=== PATIENT | female | born 1965 | race Caucasian/White ===

== ENCOUNTER 2018-11-25 18:18 | Inpatient (IN) ==
--- NOTE | 2018-11-25 19:31 | XR ---
EXAM DATE: 11/25/2018 7:27 PM EST AGE/SEX: 53 years / Female INDICATIONS: Fever. Possible seizure. CLINICAL DATA: This is the patient's initial encounter. Patient reports that signs and symptoms have been present for 1 day and indicates a pain score of Nonresponsive. MEDICAL/SURGICAL HISTORY: . Unobtainable. . Unobtainable. COMPARISON: . FINDINGS: The lungs are clear without infiltrate, nodule, or mass. There is no appreciable pleural e ffusion for technique. Heart and mediastinum are unremarkable. Transpedicular screws and posterior s tabilization rods are present involving the patient's thoracic spine. CONCLUSION: No acute cardiopulmonary disease. Electronically signed by: Chalo Rodriguez MD Board Certified Radiologist 11/25/2018 7:29 PM EST
[2018-11-25] MEDS ORDERED: Morphine Inj 4 MG/ML Vial IV.PUSH ONE (20:36)
[2018-11-25 20:48] LABS: Baso % (Auto) 0.3 % (0.0-2.0); Eos # (Auto) 0.2 th/mm3 (0.0-0.4); Eos % (Auto) 1.6 % (0.0-4.0); Lymph # (Auto) 2.6 th/mm3 (1.0-4.8); Lymph % (Auto) 19.8 % (9.0-44.0); Mean Corpuscular HGB Conc 33.4 % (32.0-36.0); Mean Corpuscular Hemoglobin 29.2 pg (27.0-34.0); Mean Corpuscular Volume 87.5 fL (80.0-100.0); Mean Platelet Volume 7.9 fL (7.0-11.0); Mono # (Auto) 0.6 th/mm3 (0.0-0.9); Mono % (Auto) 4.8 % (0.0-8.0); Neut # (Auto) 9.5 th/mm3 (1.8-7.7); Neut % (Auto) 73.5 % (16.0-70.0); Platelet Count 376 th/mm3 (150-450); Red Blood Count 5.49 mil/mm3 (4.00-5.30); Red Cell Distribution Width 14.6 % (11.6-17.2); White Blood Count 12.9 th/mm3 (4.0-11.0)
[2018-11-25 21:17] LABS: Alanine Aminotransferase 30 U/L (10-53); Albumin 3.9 g/dL (3.4-5.0); Alkaline Phosphatase 130 U/L (45-117); Anion Gap 8 meq/L (5-15); Aspartate Aminotransferase 18 U/L (15-37); Blood Urea Nitrogen 21 mg/dL (7-18); Calcium 9.2 mg/dL (8.5-10.1); Carbon Dioxide 23.2 meq/L (21.0-32.0); Chloride 109 meq/L (98-107); Glomerular Filtration Rate 54 mL/min (>89); Magnesium 2.1 mg/dL (1.5-2.5); Potassium 3.2 meq/L (3.5-5.1); Sodium 140 meq/L (136-145); Total Protein 8.6 g/dL (6.4-8.2)
[2018-11-25 21:35] LABS: Glucose,Random 43 mg/dL (74-106)
[2018-11-25] MEDS ORDERED: Sod Chloride 0.9% Inj 1,000 ML IV.SIG SCH (21:45)
[2018-11-25 22:10] LABS: Eosinophils 3 % (0-4); Lymphocytes 16 % (9-44); Monocytes 7 % (0-8); Platelet Estimate Normal (Normal); Platelet Morphology Normal (Normal)
--- NOTE | 2018-11-25 22:39 | CT ---
EXAM DATE: 11/25/2018 10:19 PM EST AGE/SEX: 53 years / Female INDICATIONS: Altered mental status. Seizure. CLINICAL DATA: This is the patient's initial encounter. Patient reports that signs and symptoms have been present for 1 day and indicates a pain score of 0/10. MEDICAL/SURGICAL HISTORY: Seizures. . Heart valve replacement. RADIATION DOSE: 34.87 CTDI (mGy) COMPARISON: No prior exams available for comparison. TECHNIQUE: CT of the head without contrast. Using automated exposure control and adjustment of the mA and/or kV according to patient size, radiation dose was kept as low as reasonably achievable to ob tain optimal diagnostic quality images. DICOM format image data is available electronically for revi ew and comparison. FINDINGS: Cerebrum: The ventricles are normal for age. No evidence of midline shift, mass lesion, hemorrhage or acute infarction. No extraaxial fluid collections are seen. There is low density in the anterior left basal ganglia and the anterior limb of the internal capsule on the right likely from prior lacun ar infarct. Posterior Fossa: The cerebellum and brainstem are intact. The 4th ventricle is midline. The cerebe llopontine angle is unremarkable. Extracranial: The visualized portion of the orbits is intact. Skull: The calvaria is intact. No evidence of skull fracture. CONCLUSION: 1. No acute areas of hemorrhage or mass effect. 2. Suspected old lacunar infarcts. . . Electronically signed by: Madhu Blevins MD Board Certified Radiologist 11/25/2018 10:38 PM EST
--- NOTE | 2018-11-25 22:59 | ED ---
HPI General Chief complaint: Seizure Stated complaint: Seizure Time Seen by Provider: 11/25/18 18:59 Source: EMS Mode of arrival: EMS Limitations: altered mental status History of Present Illness HPI narrative: 53-year-old female came to the emergency room with history of seizure that was witnessed by the family. Her blood sugar when checked was in the 40s at the bedside. It was low when EMS had arrived and given her some D50 but continued to be low. She was given another amp of D50 prior to my arrival. She was a difficult IV and hence an IO was obtained by Dr. Valverde. When I went to see her patient was altered mental status but awake enough to be complaining of the right leg pain where the IO was inserted. The needle was taken out. It was difficult to get much history other than that from the patient. She was constantly moaning and complaining about the leg pain. There was no family member in the room to give any additional history. Patient is not a reliable historian at this point. Related Data Home Medications Medication Instructions Recorded Confirmed alprazolam [Xanax] 1 mg PO BID PRN 11/25/18 11/25/18 aspirin 81 mg PO DAILY 11/25/18 11/25/18 cyclobenzaprine 10 mg PO BID PRN 11/25/18 11/25/18 pantoprazole [Protonix] 40 mg PO DAILY 11/25/18 11/25/18 Previous Rx's Medication Instructions Recorded diltiazem HCl 120 mg PO DAILY 30 Days #30 cap 11/29/18 hydromorphone 2 mg PO Q4H PRN #15 tab 11/29/18 pravastatin 40 mg PO DAILY 30 Days #30 tab 11/29/18 Allergies Allergy/AdvReac Type Severity Reaction Status Date / Time acetaminophen [From Fioricet] Allergy Shortness Verified 11/25/18 18:57 of Breath butalbital [From Fioricet] Allergy Shortness Verified 11/25/18 18:57 of Breath butorphanol Allergy Shortness Verified 11/25/18 18:57 of Breath caffeine [From Fioricet] Allergy Shortness Verified 11/25/18 18:57 of Breath calcium [From DHEA] Allergy Shortness Verified 11/25/18 18:57 of Breath calcium carbonate [From DHEA] Allergy Shortness Verified 11/25/18 18:57 of Breath doxycycline Allergy Shortness Verified 11/25/18 18:57 of Breath droperidol [From Inapsine] Allergy Shortness Verified 11/25/18 18:57 of Breath hydrocodone Allergy Shortness Verified 11/25/18 18:57 [From Lorcet (hydrocodone)] of Breath ketorolac [From Toradol] Allergy Shortness Verified 11/25/18 18:57 of Breath lorazepam [From Ativan] Allergy Shortness Verified 11/25/18 18:57 of Breath metoclopramide [From Reglan] Allergy Shortness Verified 11/25/18 18:57 of Breath nalbuphine [From Nubain] Allergy Shortness Verified 11/25/18 18:57 of Breath oxycodone [From Percocet] Allergy Shortness Verified 11/25/18 18:57 of Breath prasterone (DHEA) [From DHEA] Allergy Shortness Verified 11/25/18 18:57 of Breath prochlorperazine Allergy Shortness Verified 11/25/18 18:57 [From Compazine] of Breath rivaroxaban [From Xarelto] Allergy Shortness Verified 11/25/18 18:57 of Breath sumatriptan [From Imitrex] Allergy Shortness Verified 11/25/18 18:57 of Breath Review of Systems ROS Unobtainable ROS Unobtainable: unobtainable due to mental status [facility] Medical History Medical History Seizures (Acute) Surgical History Surgical History Heart valve replaced (Acute) Social History Social History Substance History: No History of Abuse Second Hand Smoke Exposure: Yes Smoking Status: Light tobacco smoker Tobacco Type: Cigarettes How Often Do You Have a Drink Containing Alcohol: Monthly or less Recent Travel in [facility] within the Last 8 Weeks: No Recent Out of Country Travel within the Last 8 Weeks: No Immunization History Tetanus Immunization: Unsure Exam Narrative Exam Narrative: GENERAL: Lethargic, moderate distress, in pain SKIN: Focused skin assessment warm/dry. HEAD: Atraumatic. Normocephalic. EYES: Pupils equal and round. No scleral icterus. No injection or drainage. ENT: No nasal bleeding or discharge. Mucous membranes pink and moist. NECK: Trachea midline. No JVD. CARDIOVASCULAR: Regular rate and rhythm. No murmur appreciated. RESPIRATORY: No accessory muscle use. Clear to auscultation. Breath sounds equal bilaterally. GASTROINTESTINAL: Abdomen soft, non-tender, nondistended. Hepatic and splenic margins not palpable. MUSCULOSKELETAL: No obvious deformities. No clubbing. No cyanosis. No edema. Right leg I will puncture leif on the proximal tibia near the tibial tuberosity. There is some swelling NEUROLOGICAL: GCS of 14. No obvious cranial nerve deficits. Motor grossly within normal limits. Normal speech. PSYCHIATRIC: Appropriate mood and affect; insight and judgment normal. Course Initial Documented Vital Signs Temperature 99.5 F 11/25/18 18:29 Pulse Rate 79 11/25/18 18:29 Respiratory Rate 16 11/25/18 18:29 Blood Pressure 120/67 11/25/18 18:29 Pulse Oximetry 99 11/25/18 18:29 Last Documented Vital Signs Temperature 98.7 F 11/29/18 16:31 Pulse Rate 92 H 11/29/18 16:31 Respiratory Rate 18 11/29/18 16:31 Blood Pressure 133/84 11/29/18 16:31 Pulse Oximetry 95 11/29/18 16:31 Medical Decision Making MDM Narrative Medical decision making narrative: 10:56 PM blood test results are back and regular blood glucose levels have been done. After D50 the blood glucose had gone up to 220 and now is steadily trending down. The last blood glucose was 77 which was after she drank a cup of Gatorade. Patient is more comfortable at this point and answering questions. She is eating some crackers. Patient says that she is not on any diabetes medications. I have decided to admit her. Medical Screen Exam Complete: Yes Emergency Medical Condition: Yes Lab Data Result diagrams: 11/26/18 09:22 11/26/18 09:22 Lab Results 11/25/18 11/25/18 11/25/18 Range/Units 19:05 20:00 20:00 WBC 12.9 H (4.0-11.0) th/mm3 RBC 5.49 H (4.00-5.30) mil/mm3 Hgb 16.0 H (11.6-15.3) gm/dL Hct 48.0 H (35.0-46.0) % MCV 87.5 (80.0-100.0) fL MCH 29.2 (27.0-34.0) pg MCHC 33.4 (32.0-36.0) % RDW 14.6 (11.6-17.2) % Plt Count 376 (150-450) th/mm3 MPV 7.9 (7.0-11.0) fL Prelim Diff (Auto) Slide review pending Neut % (Auto) 73.5 H (16.0-70.0) % Lymph % (Auto) 19.8 (9.0-44.0) % [place] % (Auto) 4.8 (0.0-8.0) % Eos % (Auto) 1.6 (0.0-4.0) % Baso % (Auto) 0.3 (0.0-2.0) % Neut # (Auto) 9.5 H (1.8-7.7) th/mm3 Lymph # (Auto) 2.6 (1.0-4.8) th/mm3 [place] # (Auto) 0.6 (0.0-0.9) th/mm3 Eos # (Auto) 0.2 (0.0-0.4) th/mm3 Baso # (Auto) 0.0 (0.0-0.2) th/mm3 WBC Differential Manual diff final Seg Neuts % (Manual) 73 H (16-70) % Band Neuts % (Manual) 1 (0-6) % Lymphocytes % (Manual) 16 (9-44) % Monocytes % (Manual) 7 (0-8) % Eosinophils % (Manual) 3 (0-4) % Abs Neuts (Manual) 9.5 H (1.8-7.7) th/mm3 Differential Comment . Platelet Estimate Normal (Normal) Platelet Morphology Normal (Normal) Sodium 140 (136-145) meq/L Potassium 3.2 L (3.5-5.1) meq/L Chloride 109 H (98-107) meq/L Carbon Dioxide 23.2 (21.0-32.0) meq/L Anion Gap 8 (5-15) meq/L BUN 21 H (7-18) mg/dL Creatinine 1.07 H (0.50-1.00) mg/dL Estimated GFR 54 L (>89) mL/min POC Glucose 209 H (68-110) mg/dl Random Glucose 43 L* (74-106) mg/dL Hemoglobin A1c (4.3-6.0) % Proinsulin (3.6-22) pmol/L Lactic Acid (0.4-2.0) mmol/L Calcium 9.2 (8.5-10.1) mg/dL Magnesium 2.1 (1.5-2.5) mg/dL Total Bilirubin 0.2 (0.2-1.0) mg/dL AST 18 (15-37) U/L ALT 30 (10-53) U/L Alkaline Phosphatase 130 H (45-117) U/L Total Protein 8.6 H (6.4-8.2) g/dL Albumin 3.9 (3.4-5.0) g/dL Triglycerides (42-150) mg/dL Cholesterol (120-200) mg/dL LDL Cholesterol, Calc (0-99) mg/dL HDL Cholesterol (40.0-60.0) mg/dL Cholesterol/HDL Ratio Ratio Vitamin B12 (193-986) pg/mL Beta-Hydroxybutyric Acd (0.00-0.39) mmol/L Urine Color (Yellw/Straw) Urine Clarity (Clear) Urine pH (5.0-8.5) Ur Specific [place] (1.002-1.035) Urine Protein (Neg-Trace) mg/dL Urine Glucose (UA) (Negative) mg/dL Urine Ketones (Negative) mg/dL Urine Occult Blood (Negative) Urine Nitrate (Negative) Urine Bilirubin (Negative) Urine Urobilinogen (Less than 2) mg/dL Ur Leukocyte Esterase (Negative) Urine RBC (0-3) /hpf Urine WBC (0-5) /hpf Ur Squamous Epith Cells (0-5) /hpf Urine Bacteria (None) /hpf Urine Mucus (Occasional) /lpf Micro UA Comment Ur Microscopic Review Urine Culture Comments Urine Opiates Screen (Neg) Ur Barbiturates Screen (Neg) Ur Amphetamines Screen (Neg) U Benzodiazepines Scrn (Neg) Urine Cocaine Screen (Neg) U Cannabinoids Screen (Neg) Serum Alcohol Less than 3 (0-5) mg/dL 11/25/18 11/25/18 11/25/18 Range/Units 20:00 21:08 22:48 WBC (4.0-11.0) th/mm3 RBC (4.00-5.30) mil/mm3 Hgb (11.6-15.3) gm/dL Hct (35.0-46.0) % MCV (80.0-100.0) fL MCH (27.0-34.0) pg MCHC (32.0-36.0) % RDW (11.6-17.2) % Plt Count (150-450) th/mm3 MPV (7.0-11.0) fL Prelim Diff (Auto) Neut % (Auto) (16.0-70.0) % Lymph % (Auto) (9.0-44.0) % [place] % (Auto) (0.0-8.0) % Eos % (Auto) (0.0-4.0) % Baso % (Auto) (0.0-2.0) % Neut # (Auto) (1.8-7.7) th/mm3 Lymph # (Auto) (1.0-4.8) th/mm3 [place] # (Auto) (0.0-0.9) th/mm3 Eos # (Auto) (0.0-0.4) th/mm3 Baso # (Auto) (0.0-0.2) th/mm3 WBC Differential Seg Neuts % (Manual) (16-70) % Band Neuts % (Manual) (0-6) % Lymphocytes % (Manual) (9-44) % Monocytes % (Manual) (0-8) % Eosinophils % (Manual) (0-4) % Abs Neuts (Manual) (1.8-7.7) th/mm3 Differential Comment Platelet Estimate (Normal) Platelet Morphology (Normal) Sodium (136-145) meq/L Potassium (3.5-5.1) meq/L Chloride (98-107) meq/L Carbon Dioxide (21.0-32.0) meq/L Anion Gap (5-15) meq/L BUN (7-18) mg/dL Creatinine (0.50-1.00) mg/dL Estimated GFR (>89) mL/min POC Glucose 107 77 (68-110) mg/dl Random Glucose (74-106) mg/dL Hemoglobin A1c (4.3-6.0) % Proinsulin (3.6-22) pmol/L Lactic Acid 2.1 H (0.4-2.0) mmol/L Calcium (8.5-10.1) mg/dL Magnesium (1.5-2.5) mg/dL Total Bilirubin (0.2-1.0) mg/dL AST (15-37) U/L ALT (10-53) U/L Alkaline Phosphatase (45-117) U/L Total Protein (6.4-8.2) g/dL Albumin (3.4-5.0) g/dL Triglycerides (42-150) mg/dL Cholesterol (120-200) mg/dL LDL Cholesterol, Calc (0-99) mg/dL HDL Cholesterol (40.0-60.0) mg/dL Cholesterol/HDL Ratio Ratio Vitamin B12 (193-986) pg/mL Beta-Hydroxybutyric Acd (0.00-0.39) mmol/L Urine Color (Yellw/Straw) Urine Clarity (Clear) Urine pH (5.0-8.5) Ur Specific [place] (1.002-1.035) Urine Protein (Neg-Trace) mg/dL Urine Glucose (UA) (Negative) mg/dL Urine Ketones (Negative) mg/dL Urine Occult Blood (Negative) Urine Nitrate (Negative) Urine Bilirubin (Negative) Urine Urobilinogen (Less than 2) mg/dL Ur Leukocyte Esterase (Negative) Urine RBC (0-3) /hpf Urine WBC (0-5) /hpf Ur Squamous Epith Cells (0-5) /hpf Urine Bacteria (None) /hpf Urine Mucus (Occasional) /lpf Micro UA Comment Ur Microscopic Review Urine Culture Comments Urine Opiates Screen (Neg) Ur Barbiturates Screen (Neg) Ur Amphetamines Screen (Neg) U Benzodiazepines Scrn (Neg) Urine Cocaine Screen (Neg) U Cannabinoids Screen (Neg) Serum Alcohol (0-5) mg/dL 11/25/18 11/26/18 11/26/18 Range/Units 23:57 03:54 08:49 WBC (4.0-11.0) th/mm3 RBC (4.00-5.30) mil/mm3 Hgb (11.6-15.3) gm/dL Hct (35.0-46.0) % MCV (80.0-100.0) fL MCH (27.0-34.0) pg MCHC (32.0-36.0) % RDW (11.6-17.2) % Plt Count (150-450) th/mm3 MPV (7.0-11.0) fL Prelim Diff (Auto) Neut % (Auto) (16.0-70.0) % Lymph % (Auto) (9.0-44.0) % [place] % (Auto) (0.0-8.0) % Eos % (Auto) (0.0-4.0) % Baso % (Auto) (0.0-2.0) % Neut # (Auto) (1.8-7.7) th/mm3 Lymph # (Auto) (1.0-4.8) th/mm3 [place] # (Auto) (0.0-0.9) th/mm3 Eos # (Auto) (0.0-0.4) th/mm3 Baso # (Auto) (0.0-0.2) th/mm3 WBC Differential Seg Neuts % (Manual) (16-70) % Band Neuts % (Manual) (0-6) % Lymphocytes % (Manual) (9-44) % Monocytes % (Manual) (0-8) % Eosinophils % (Manual) (0-4) % Abs Neuts (Manual) (1.8-7.7) th/mm3 Differential Comment Platelet Estimate (Normal) Platelet Morphology (Normal) Sodium (136-145) meq/L Potassium (3.5-5.1) meq/L Chloride (98-107) meq/L Carbon Dioxide (21.0-32.0) meq/L Anion Gap (5-15) meq/L BUN (7-18) mg/dL Creatinine (0.50-1.00) mg/dL Estimated GFR (>89) mL/min POC Glucose 159 H 142 H (68-110) mg/dl Random Glucose (74-106) mg/dL Hemoglobin A1c (4.3-6.0) % Proinsulin (3.6-22) pmol/L Lactic Acid 1.5 (0.4-2.0) mmol/L Calcium (8.5-10.1) mg/dL Magnesium (1.5-2.5) mg/dL Total Bilirubin (0.2-1.0) mg/dL AST (15-37) U/L ALT (10-53) U/L Alkaline Phosphatase (45-117) U/L Total Protein (6.4-8.2) g/dL Albumin (3.4-5.0) g/dL Triglycerides (42-150) mg/dL Cholesterol (120-200) mg/dL LDL Cholesterol, Calc (0-99) mg/dL HDL Cholesterol (40.0-60.0) mg/dL Cholesterol/HDL Ratio Ratio Vitamin B12 (193-986) pg/mL Beta-Hydroxybutyric Acd (0.00-0.39) mmol/L Urine Color (Yellw/Straw) Urine Clarity (Clear) Urine pH (5.0-8.5) Ur Specific [place] (1.002-1.035) Urine Protein (Neg-Trace) mg/dL Urine Glucose (UA) (Negative) mg/dL Urine Ketones (Negative) mg/dL Urine Occult Blood (Negative) Urine Nitrate (Negative) Urine Bilirubin (Negative) Urine Urobilinogen (Less than 2) mg/dL Ur Leukocyte Esterase (Negative) Urine RBC (0-3) /hpf Urine WBC (0-5) /hpf Ur Squamous Epith Cells (0-5) /hpf Urine Bacteria (None) /hpf Urine Mucus (Occasional) /lpf Micro UA Comment Ur Microscopic Review Urine Culture Comments Urine Opiates Screen (Neg) Ur Barbiturates Screen (Neg) Ur Amphetamines Screen (Neg) U Benzodiazepines Scrn (Neg) Urine Cocaine Screen (Neg) U Cannabinoids Screen (Neg) Serum Alcohol (0-5) mg/dL 11/26/18 11/26/18 11/26/18 Range/Units 09:22 09:22 09:22 WBC 10.0 (4.0-11.0) th/mm3 RBC 4.78 (4.00-5.30) mil/mm3 Hgb 14.2 (11.6-15.3) gm/dL Hct 41.8 (35.0-46.0) % MCV 87.4 (80.0-100.0) fL MCH 29.7 (27.0-34.0) pg MCHC 34.0 (32.0-36.0) % RDW 14.4 (11.6-17.2) % Plt Count 357 (150-450) th/mm3 MPV 7.7 (7.0-11.0) fL Prelim Diff (Auto) Neut % (Auto) 68.5 (16.0-70.0) % Lymph % (Auto) 23.9 (9.0-44.0) % [place] % (Auto) 5.2 (0.0-8.0) % Eos % (Auto) 2.1 (0.0-4.0) % Baso % (Auto) 0.3 (0.0-2.0) % Neut # (Auto) 6.8 (1.8-7.7) th/mm3 Lymph # (Auto) 2.4 (1.0-4.8) th/mm3 [place] # (Auto) 0.5 (0.0-0.9) th/mm3 Eos # (Auto) 0.2 (0.0-0.4) th/mm3 Baso # (Auto) 0.0 (0.0-0.2) th/mm3 WBC Differential . Seg Neuts % (Manual) (16-70) % Band Neuts % (Manual) (0-6) % Lymphocytes % (Manual) (9-44) % Monocytes % (Manual) (0-8) % Eosinophils % (Manual) (0-4) % Abs Neuts (Manual) (1.8-7.7) th/mm3 Differential Comment Auto diff final Platelet Estimate (Normal) Platelet Morphology (Normal) Sodium 137 (136-145) meq/L Potassium 4.2 D (3.5-5.1) meq/L Chloride 108 H (98-107) meq/L Carbon Dioxide 21.2 (21.0-32.0) meq/L Anion Gap 8 (5-15) meq/L BUN 14 (7-18) mg/dL Creatinine 0.98 (0.50-1.00) mg/dL Estimated GFR 59 L (>89) mL/min POC Glucose (68-110) mg/dl Random Glucose 114 H (74-106) mg/dL Hemoglobin A1c 6.2 H (4.3-6.0) % Proinsulin (3.6-22) pmol/L Lactic Acid (0.4-2.0) mmol/L Calcium 8.7 (8.5-10.1) mg/dL Magnesium (1.5-2.5) mg/dL Total Bilirubin 0.7 (0.2-1.0) mg/dL AST 21 (15-37) U/L ALT 27 (10-53) U/L Alkaline Phosphatase 123 H (45-117) U/L Total Protein 7.4 D (6.4-8.2) g/dL Albumin 3.4 (3.4-5.0) g/dL Triglycerides (42-150) mg/dL Cholesterol (120-200) mg/dL LDL Cholesterol, Calc (0-99) mg/dL HDL Cholesterol (40.0-60.0) mg/dL Cholesterol/HDL Ratio Ratio Vitamin B12 (193-986) pg/mL Beta-Hydroxybutyric Acd (0.00-0.39) mmol/L Urine Color (Yellw/Straw) Urine Clarity (Clear) Urine pH (5.0-8.5) Ur Specific [place] (1.002-1.035) Urine Protein (Neg-Trace) mg/dL Urine Glucose (UA) (Negative) mg/dL Urine Ketones (Negative) mg/dL Urine Occult Blood (Negative) Urine Nitrate (Negative) Urine Bilirubin (Negative) Urine Urobilinogen (Less than 2) mg/dL Ur Leukocyte Esterase (Negative) Urine RBC (0-3) /hpf Urine WBC (0-5) /hpf Ur Squamous Epith Cells (0-5) /hpf Urine Bacteria (None) /hpf Urine Mucus (Occasional) /lpf Micro UA Comment Ur Microscopic Review Urine Culture Comments Urine Opiates Screen (Neg) Ur Barbiturates Screen (Neg) Ur Amphetamines Screen (Neg) U Benzodiazepines Scrn (Neg) Urine Cocaine Screen (Neg) U Cannabinoids Screen (Neg) Serum Alcohol (0-5) mg/dL 11/26/18 11/26/18 11/26/18 Range/Units 09:22 11:35 11:35 WBC (4.0-11.0) th/mm3 RBC (4.00-5.30) mil/mm3 Hgb (11.6-15.3) gm/dL Hct (35.0-46.0) % MCV (80.0-100.0) fL MCH (27.0-34.0) pg MCHC (32.0-36.0) % RDW (11.6-17.2) % Plt Count (150-450) th/mm3 MPV (7.0-11.0) fL Prelim Diff (Auto) Neut % (Auto) (16.0-70.0) % Lymph % (Auto) (9.0-44.0) % [place] % (Auto) (0.0-8.0) % Eos % (Auto) (0.0-4.0) % Baso % (Auto) (0.0-2.0) % Neut # (Auto) (1.8-7.7) th/mm3 Lymph # (Auto) (1.0-4.8) th/mm3 [place] # (Auto) (0.0-0.9) th/mm3 Eos # (Auto) (0.0-0.4) th/mm3 Baso # (Auto) (0.0-0.2) th/mm3 WBC Differential Seg Neuts % (Manual) (16-70) % Band Neuts % (Manual) (0-6) % Lymphocytes % (Manual) (9-44) % Monocytes % (Manual) (0-8) % Eosinophils % (Manual) (0-4) % Abs Neuts (Manual) (1.8-7.7) th/mm3 Differential Comment Platelet Estimate (Normal) Platelet Morphology (Normal) Sodium (136-145) meq/L Potassium (3.5-5.1) meq/L Chloride (98-107) meq/L Carbon Dioxide (21.0-32.0) meq/L Anion Gap (5-15) meq/L BUN (7-18) mg/dL Creatinine (0.50-1.00) mg/dL Estimated GFR (>89) mL/min POC Glucose (68-110) mg/dl Random Glucose (74-106) mg/dL Hemoglobin A1c (4.3-6.0) % Proinsulin (3.6-22) pmol/L Lactic Acid (0.4-2.0) mmol/L Calcium (8.5-10.1) mg/dL Magnesium (1.5-2.5) mg/dL Total Bilirubin (0.2-1.0) mg/dL AST (15-37) U/L ALT (10-53) U/L Alkaline Phosphatase (45-117) U/L Total Protein (6.4-8.2) g/dL Albumin (3.4-5.0) g/dL Triglycerides 148 (42-150) mg/dL Cholesterol 269 H (120-200) mg/dL LDL Cholesterol, Calc 189 H (0-99) mg/dL HDL Cholesterol 50.5 (40.0-60.0) mg/dL Cholesterol/HDL Ratio 5.32 Ratio Vitamin B12 540 (193-986) pg/mL Beta-Hydroxybutyric Acd (0.00-0.39) mmol/L Urine Color Yellow (Yellw/Straw) Urine Clarity Hazy H (Clear) Urine pH 5.0 (5.0-8.5) Ur Specific [place] 1.010 (1.002-1.035) Urine Protein Negative (Neg-Trace) mg/dL Urine Glucose (UA) 50 (Negative) mg/dL Urine Ketones Negative (Negative) mg/dL Urine Occult Blood Negative (Negative) Urine Nitrate Negative (Negative) Urine Bilirubin Negative (Negative) Urine Urobilinogen Less than 2 (Less than 2) mg/dL Ur Leukocyte Esterase Trace H (Negative) Urine RBC Less than 1 (0-3) /hpf Urine WBC 4 (0-5) /hpf Ur Squamous Epith Cells 7 (0-5) /hpf Urine Bacteria Rare H (None) /hpf Urine Mucus Few H (Occasional) /lpf Micro UA Comment Culture not ind Ur Microscopic Review Not Reportable Urine Culture Comments Culture not ind Urine Opiates Screen Neg (Neg) Ur Barbiturates Screen Neg (Neg) Ur Amphetamines Screen Neg (Neg) U Benzodiazepines Scrn Pos H (Neg) Urine Cocaine Screen Neg (Neg) U Cannabinoids Screen Neg (Neg) Serum Alcohol (0-5) mg/dL 11/26/18 11/26/18 11/26/18 Range/Units 13:42 17:28 20:02 WBC (4.0-11.0) th/mm3 RBC (4.00-5.30) mil/mm3 Hgb (11.6-15.3) gm/dL Hct (35.0-46.0) % MCV (80.0-100.0) fL MCH (27.0-34.0) pg MCHC (32.0-36.0) % RDW (11.6-17.2) % Plt Count (150-450) th/mm3 MPV (7.0-11.0) fL Prelim Diff (Auto) Neut % (Auto) (16.0-70.0) % Lymph % (Auto) (9.0-44.0) % [place] % (Auto) (0.0-8.0) % Eos % (Auto) (0.0-4.0) % Baso % (Auto) (0.0-2.0) % Neut # (Auto) (1.8-7.7) th/mm3 Lymph # (Auto) (1.0-4.8) th/mm3 [place] # (Auto) (0.0-0.9) th/mm3 Eos # (Auto) (0.0-0.4) th/mm3 Baso # (Auto) (0.0-0.2) th/mm3 WBC Differential Seg Neuts % (Manual) (16-70) % Band Neuts % (Manual) (0-6) % Lymphocytes % (Manual) (9-44) % Monocytes % (Manual) (0-8) % Eosinophils % (Manual) (0-4) % Abs Neuts (Manual) (1.8-7.7) th/mm3 Differential Comment Platelet Estimate (Normal) Platelet Morphology (Normal) Sodium (136-145) meq/L Potassium (3.5-5.1) meq/L Chloride (98-107) meq/L Carbon Dioxide (21.0-32.0) meq/L Anion Gap (5-15) meq/L BUN (7-18) mg/dL Creatinine (0.50-1.00) mg/dL Estimated GFR (>89) mL/min POC Glucose 95 109 110 (68-110) mg/dl Random Glucose (74-106) mg/dL Hemoglobin A1c (4.3-6.0) % Proinsulin (3.6-22) pmol/L Lactic Acid (0.4-2.0) mmol/L Calcium (8.5-10.1) mg/dL Magnesium (1.5-2.5) mg/dL Total Bilirubin (0.2-1.0) mg/dL AST (15-37) U/L ALT (10-53) U/L Alkaline Phosphatase (45-117) U/L Total Protein (6.4-8.2) g/dL Albumin (3.4-5.0) g/dL Triglycerides (42-150) mg/dL Cholesterol (120-200) mg/dL LDL Cholesterol, Calc (0-99) mg/dL HDL Cholesterol (40.0-60.0) mg/dL Cholesterol/HDL Ratio Ratio Vitamin B12 (193-986) pg/mL Beta-Hydroxybutyric Acd (0.00-0.39) mmol/L Urine Color (Yellw/Straw) Urine Clarity (Clear) Urine pH (5.0-8.5) Ur Specific [place] (1.002-1.035) Urine Protein (Neg-Trace) mg/dL Urine Glucose (UA) (Negative) mg/dL Urine Ketones (Negative) mg/dL Urine Occult Blood (Negative) Urine Nitrate (Negative) Urine Bilirubin (Negative) Urine Urobilinogen (Less than 2) mg/dL Ur Leukocyte Esterase (Negative) Urine RBC (0-3) /hpf Urine WBC (0-5) /hpf Ur Squamous Epith Cells (0-5) /hpf Urine Bacteria (None) /hpf Urine Mucus (Occasional) /lpf Micro UA Comment Ur Microscopic Review Urine Culture Comments Urine Opiates Screen (Neg) Ur Barbiturates Screen (Neg) Ur Amphetamines Screen (Neg) U Benzodiazepines Scrn (Neg) Urine Cocaine Screen (Neg) U Cannabinoids Screen (Neg) Serum Alcohol (0-5) mg/dL 11/27/18 11/27/18 11/27/18 Range/Units 08:17 11:57 17:50 WBC (4.0-11.0) th/mm3 RBC (4.00-5.30) mil/mm3 Hgb (11.6-15.3) gm/dL Hct (35.0-46.0) % MCV (80.0-100.0) fL MCH (27.0-34.0) pg MCHC (32.0-36.0) % RDW (11.6-17.2) % Plt Count (150-450) th/mm3 MPV (7.0-11.0) fL Prelim Diff (Auto) Neut % (Auto) (16.0-70.0) % Lymph % (Auto) (9.0-44.0) % [place] % (Auto) (0.0-8.0) % Eos % (Auto) (0.0-4.0) % Baso % (Auto) (0.0-2.0) % Neut # (Auto) (1.8-7.7) th/mm3 Lymph # (Auto) (1.0-4.8) th/mm3 [place] # (Auto) (0.0-0.9) th/mm3 Eos # (Auto) (0.0-0.4) th/mm3 Baso # (Auto) (0.0-0.2) th/mm3 WBC Differential Seg Neuts % (Manual) (16-70) % Band Neuts % (Manual) (0-6) % Lymphocytes % (Manual) (9-44) % Monocytes % (Manual) (0-8) % Eosinophils % (Manual) (0-4) % Abs Neuts (Manual) (1.8-7.7) th/mm3 Differential Comment Platelet Estimate (Normal) Platelet Morphology (Normal) Sodium (136-145) meq/L Potassium (3.5-5.1) meq/L Chloride (98-107) meq/L Carbon Dioxide (21.0-32.0) meq/L Anion Gap (5-15) meq/L BUN (7-18) mg/dL Creatinine (0.50-1.00) mg/dL Estimated GFR (>89) mL/min POC Glucose 128 H 168 H 103 (68-110) mg/dl Random Glucose (74-106) mg/dL Hemoglobin A1c (4.3-6.0) % Proinsulin (3.6-22) pmol/L Lactic Acid (0.4-2.0) mmol/L Calcium (8.5-10.1) mg/dL Magnesium (1.5-2.5) mg/dL Total Bilirubin (0.2-1.0) mg/dL AST (15-37) U/L ALT (10-53) U/L Alkaline Phosphatase (45-117) U/L Total Protein (6.4-8.2) g/dL Albumin (3.4-5.0) g/dL Triglycerides (42-150) mg/dL Cholesterol (120-200) mg/dL LDL Cholesterol, Calc (0-99) mg/dL HDL Cholesterol (40.0-60.0) mg/dL Cholesterol/HDL Ratio Ratio Vitamin B12 (193-986) pg/mL Beta-Hydroxybutyric Acd (0.00-0.39) mmol/L Urine Color (Yellw/Straw) Urine Clarity (Clear) Urine pH (5.0-8.5) Ur Specific [place] (1.002-1.035) Urine Protein (Neg-Trace) mg/dL Urine Glucose (UA) (Negative) mg/dL Urine Ketones (Negative) mg/dL Urine Occult Blood (Negative) Urine Nitrate (Negative) Urine Bilirubin (Negative) Urine Urobilinogen (Less than 2) mg/dL Ur Leukocyte Esterase (Negative) Urine RBC (0-3) /hpf Urine WBC (0-5) /hpf Ur Squamous Epith Cells (0-5) /hpf Urine Bacteria (None) /hpf Urine Mucus (Occasional) /lpf Micro UA Comment Ur Microscopic Review Urine Culture Comments Urine Opiates Screen (Neg) Ur Barbiturates Screen (Neg) Ur Amphetamines Screen (Neg) U Benzodiazepines Scrn (Neg) Urine Cocaine Screen (Neg) U Cannabinoids Screen (Neg) Serum Alcohol (0-5) mg/dL 11/27/18 11/28/18 11/28/18 Range/Units 20:18 08:39 13:27 WBC (4.0-11.0) th/mm3 RBC (4.00-5.30) mil/mm3 Hgb (11.6-15.3) gm/dL Hct (35.0-46.0) % MCV (80.0-100.0) fL MCH (27.0-34.0) pg MCHC (32.0-36.0) % RDW (11.6-17.2) % Plt Count (150-450) th/mm3 MPV (7.0-11.0) fL Prelim Diff (Auto) Neut % (Auto) (16.0-70.0) % Lymph % (Auto) (9.0-44.0) % [place] % (Auto) (0.0-8.0) % Eos % (Auto) (0.0-4.0) % Baso % (Auto) (0.0-2.0) % Neut # (Auto) (1.8-7.7) th/mm3 Lymph # (Auto) (1.0-4.8) th/mm3 [place] # (Auto) (0.0-0.9) th/mm3 Eos # (Auto) (0.0-0.4) th/mm3 Baso # (Auto) (0.0-0.2) th/mm3 WBC Differential Seg Neuts % (Manual) (16-70) % Band Neuts % (Manual) (0-6) % Lymphocytes % (Manual) (9-44) % Monocytes % (Manual) (0-8) % Eosinophils % (Manual) (0-4) % Abs Neuts (Manual) (1.8-7.7) th/mm3 Differential Comment Platelet Estimate (Normal) Platelet Morphology (Normal) Sodium (136-145) meq/L Potassium (3.5-5.1) meq/L Chloride (98-107) meq/L Carbon Dioxide (21.0-32.0) meq/L Anion Gap (5-15) meq/L BUN (7-18) mg/dL Creatinine (0.50-1.00) mg/dL Estimated GFR (>89) mL/min POC Glucose 115 H 100 107 (68-110) mg/dl Random Glucose (74-106) mg/dL Hemoglobin A1c (4.3-6.0) % Proinsulin (3.6-22) pmol/L Lactic Acid (0.4-2.0) mmol/L Calcium (8.5-10.1) mg/dL Magnesium (1.5-2.5) mg/dL Total Bilirubin (0.2-1.0) mg/dL AST (15-37) U/L ALT (10-53) U/L Alkaline Phosphatase (45-117) U/L Total Protein (6.4-8.2) g/dL Albumin (3.4-5.0) g/dL Triglycerides (42-150) mg/dL Cholesterol (120-200) mg/dL LDL Cholesterol, Calc (0-99) mg/dL HDL Cholesterol (40.0-60.0) mg/dL Cholesterol/HDL Ratio Ratio Vitamin B12 (193-986) pg/mL Beta-Hydroxybutyric Acd (0.00-0.39) mmol/L Urine Color (Yellw/Straw) Urine Clarity (Clear) Urine pH (5.0-8.5) Ur Specific [place] (1.002-1.035) Urine Protein (Neg-Trace) mg/dL Urine Glucose (UA) (Negative) mg/dL Urine Ketones (Negative) mg/dL Urine Occult Blood (Negative) Urine Nitrate (Negative) Urine Bilirubin (Negative) Urine Urobilinogen (Less than 2) mg/dL Ur Leukocyte Esterase (Negative) Urine RBC (0-3) /hpf Urine WBC (0-5) /hpf Ur Squamous Epith Cells (0-5) /hpf Urine Bacteria (None) /hpf Urine Mucus (Occasional) /lpf Micro UA Comment Ur Microscopic Review Urine Culture Comments Urine Opiates Screen (Neg) Ur Barbiturates Screen (Neg) Ur Amphetamines Screen (Neg) U Benzodiazepines Scrn (Neg) Urine Cocaine Screen (Neg) U Cannabinoids Screen (Neg) Serum Alcohol (0-5) mg/dL 11/28/18 11/28/18 11/28/18 Range/Units 13:48 13:48 17:41 WBC (4.0-11.0) th/mm3 RBC (4.00-5.30) mil/mm3 Hgb (11.6-15.3) gm/dL Hct (35.0-46.0) % MCV (80.0-100.0) fL MCH (27.0-34.0) pg MCHC (32.0-36.0) % RDW (11.6-17.2) % Plt Count (150-450) th/mm3 MPV (7.0-11.0) fL Prelim Diff (Auto) Neut % (Auto) (16.0-70.0) % Lymph % (Auto) (9.0-44.0) % [place] % (Auto) (0.0-8.0) % Eos % (Auto) (0.0-4.0) % Baso % (Auto) (0.0-2.0) % Neut # (Auto) (1.8-7.7) th/mm3 Lymph # (Auto) (1.0-4.8) th/mm3 [place] # (Auto) (0.0-0.9) th/mm3 Eos # (Auto) (0.0-0.4) th/mm3 Baso # (Auto) (0.0-0.2) th/mm3 WBC Differential Seg Neuts % (Manual) (16-70) % Band Neuts % (Manual) (0-6) % Lymphocytes % (Manual) (9-44) % Monocytes % (Manual) (0-8) % Eosinophils % (Manual) (0-4) % Abs Neuts (Manual) (1.8-7.7) th/mm3 Differential Comment Platelet Estimate (Normal) Platelet Morphology (Normal) Sodium (136-145) meq/L Potassium (3.5-5.1) meq/L Chloride (98-107) meq/L Carbon Dioxide (21.0-32.0) meq/L Anion Gap (5-15) meq/L BUN (7-18) mg/dL Creatinine (0.50-1.00) mg/dL Estimated GFR (>89) mL/min POC Glucose 143 H (68-110) mg/dl Random Glucose (74-106) mg/dL Hemoglobin A1c (4.3-6.0) % Proinsulin 16 (3.6-22) pmol/L Lactic Acid (0.4-2.0) mmol/L Calcium (8.5-10.1) mg/dL Magnesium (1.5-2.5) mg/dL Total Bilirubin (0.2-1.0) mg/dL AST (15-37) U/L ALT (10-53) U/L Alkaline Phosphatase (45-117) U/L Total Protein (6.4-8.2) g/dL Albumin (3.4-5.0) g/dL Triglycerides (42-150) mg/dL Cholesterol (120-200) mg/dL LDL Cholesterol, Calc (0-99) mg/dL HDL Cholesterol (40.0-60.0) mg/dL Cholesterol/HDL Ratio Ratio Vitamin B12 (193-986) pg/mL Beta-Hydroxybutyric Acd 0.25 (0.00-0.39) mmol/L Urine Color (Yellw/Straw) Urine Clarity (Clear) Urine pH (5.0-8.5) Ur Specific [place] (1.002-1.035) Urine Protein (Neg-Trace) mg/dL Urine Glucose (UA) (Negative) mg/dL Urine Ketones (Negative) mg/dL Urine Occult Blood (Negative) Urine Nitrate (Negative) Urine Bilirubin (Negative) Urine Urobilinogen (Less than 2) mg/dL Ur Leukocyte Esterase (Negative) Urine RBC (0-3) /hpf Urine WBC (0-5) /hpf Ur Squamous Epith Cells (0-5) /hpf Urine Bacteria (None) /hpf Urine Mucus (Occasional) /lpf Micro UA Comment Ur Microscopic Review Urine Culture Comments Urine Opiates Screen (Neg) Ur Barbiturates Screen (Neg) Ur Amphetamines Screen (Neg) U Benzodiazepines Scrn (Neg) Urine Cocaine Screen (Neg) U Cannabinoids Screen (Neg) Serum Alcohol (0-5) mg/dL 11/28/18 11/29/18 Range/Units 22:11 12:18 WBC (4.0-11.0) th/mm3 RBC (4.00-5.30) mil/mm3 Hgb (11.6-15.3) gm/dL Hct (35.0-46.0) % MCV (80.0-100.0) fL MCH (27.0-34.0) pg MCHC (32.0-36.0) % RDW (11.6-17.2) % Plt Count (150-450) th/mm3 MPV (7.0-11.0) fL Prelim Diff (Auto) Neut % (Auto) (16.0-70.0) % Lymph % (Auto) (9.0-44.0) % [place] % (Auto) (0.0-8.0) % Eos % (Auto) (0.0-4.0) % Baso % (Auto) (0.0-2.0) % Neut # (Auto) (1.8-7.7) th/mm3 Lymph # (Auto) (1.0-4.8) th/mm3 [place] # (Auto) (0.0-0.9) th/mm3 Eos # (Auto) (0.0-0.4) th/mm3 Baso # (Auto) (0.0-0.2) th/mm3 WBC Differential Seg Neuts % (Manual) (16-70) % Band Neuts % (Manual) (0-6) % Lymphocytes % (Manual) (9-44) % Monocytes % (Manual) (0-8) % Eosinophils % (Manual) (0-4) % Abs Neuts (Manual) (1.8-7.7) th/mm3 Differential Comment Platelet Estimate (Normal) Platelet Morphology (Normal) Sodium (136-145) meq/L Potassium (3.5-5.1) meq/L Chloride (98-107) meq/L Carbon Dioxide (21.0-32.0) meq/L Anion Gap (5-15) meq/L BUN (7-18) mg/dL Creatinine (0.50-1.00) mg/dL Estimated GFR (>89) mL/min POC Glucose 178 H 132 H (68-110) mg/dl Random Glucose (74-106) mg/dL Hemoglobin A1c (4.3-6.0) % Proinsulin (3.6-22) pmol/L Lactic Acid (0.4-2.0) mmol/L Calcium (8.5-10.1) mg/dL Magnesium (1.5-2.5) mg/dL Total Bilirubin (0.2-1.0) mg/dL AST (15-37) U/L ALT (10-53) U/L Alkaline Phosphatase (45-117) U/L Total Protein (6.4-8.2) g/dL Albumin (3.4-5.0) g/dL Triglycerides (42-150) mg/dL Cholesterol (120-200) mg/dL LDL Cholesterol, Calc (0-99) mg/dL HDL Cholesterol (40.0-60.0) mg/dL Cholesterol/HDL Ratio Ratio Vitamin B12 (193-986) pg/mL Beta-Hydroxybutyric Acd (0.00-0.39) mmol/L Urine Color (Yellw/Straw) Urine Clarity (Clear) Urine pH (5.0-8.5) Ur Specific [place] (1.002-1.035) Urine Protein (Neg-Trace) mg/dL Urine Glucose (UA) (Negative) mg/dL Urine Ketones (Negative) mg/dL Urine Occult Blood (Negative) Urine Nitrate (Negative) Urine Bilirubin (Negative) Urine Urobilinogen (Less than 2) mg/dL Ur Leukocyte Esterase (Negative) Urine RBC (0-3) /hpf Urine WBC (0-5) /hpf Ur Squamous Epith Cells (0-5) /hpf Urine Bacteria (None) /hpf Urine Mucus (Occasional) /lpf Micro UA Comment Ur Microscopic Review Urine Culture Comments Urine Opiates Screen (Neg) Ur Barbiturates Screen (Neg) Ur Amphetamines Screen (Neg) U Benzodiazepines Scrn (Neg) Urine Cocaine Screen (Neg) U Cannabinoids Screen (Neg) Serum Alcohol (0-5) mg/dL Imaging Data Radiologist's impression: Chest X-Ray 11/25/18 19:05 CONCLUSION: No acute cardiopulmonary disease. Head CT 11/25/18 19:05 CONCLUSION: 1. No acute areas of hemorrhage or mass effect. 2. Suspected old lacunar infarcts. . . Head MRI 11/26/18 00:00 CONCLUSION: 1. Old bilateral lacunar infarcts. 2. No acute infarction. 3. A few scattered susceptibility artifact within the parietal lobes could be petechial hemorrhages or hemosiderin deposition from previous lacunar infarcts. Tibia/Fibula X-Ray 11/26/18 00:00 CONCLUSION: No acute fracture Venous Doppler Study 11/26/18 00:00 CONCLUSION: 1. The study is negative for lower extremity deep venous thrombosis. Carotid Doppler Study 11/26/18 13:59 CONCLUSION: 1. Right Internal Carotid Artery: Mild plaque without stenosis. 2. Left Internal Carotid Artery: Mild plaque without stenosis. By ECG Data Attestation: I personally reviewed and interpreted this ECG as follows: Interpretation: Twelve-lead EKG was reviewed by me. Normal sinus rhythm, normal axis, tachycardia, nonspecific ST-T wave changes. Heart rate of 102 bpm. Discharge Plan Discharge Disposition Patient Disposition: ED Admit(ED Internal Use Only) Discharge Condition Condition: Stable Discharge Order Discharge Orders: Discharge Order (Routine); Ordered 11/29/18 Ordered By: Silvano Yu ED Use Only Admit Order (Routine); Ordered 11/25/18 Ordered By: Royce Butler Discharge Details Anticipated Discharge Date: 11/29/18 Physicians Team ED Provider: Royce Butler Primary Care Provider: UNKNOWN, Attending Provider: Silvano Yu Other Providers: Thor Joya ; [employer] Status ED Status: Left Department Discharge Information Discharge Date/Time: 11/26/18 00:39
[2018-11-25] MEDS ORDERED: Bisacodyl 10 MG Supp RECTAL PRN (23:04)
[2018-11-25] MEDS ORDERED: Dextrose 50% in Water 50 ML Vial IV.PUSH PRN (23:04)
[2018-11-25] MEDS: Dextrose 5% in Water Inj 1,000 ML IV.CONT SCH (23:05)
--- NOTE | 2018-11-25 23:08 | P.HPIM ---
History of Present Illness Primary Care Physician: UNKNOWN History of Present Illness: This is a 53-year-old female with a PMH of Chronic Pain who was brought to the ER by EMS after witnessed seizure activity. No h/o seizure per report. Pt unable to provide any history. Per EMS, BS 40's, no h/ o DM, s/p D50 prior to arrival w/ improvement, however has required treatment on several occasions for recurrent hypoglycemia, now on D5 gtt. On arrival, BP 120/67, HR 79, O2 sat 99% on RA, Temp 99.5. CBC 12.9. Hemoglobin 16. Creatinine 1.07. BS 43. Lactic Acid 2.1. Alcohol negative. CXR with no acute findings. CT Head negative for hemorrhage or mass-effect, old lacunar infarcts. Diagnosis (1) Seizure: (2) Hypoglycemia: (3) Chronic pain: (4) Leukocytosis: Review of Systems PAST FAMILY HISTORY: Unknown ROS Unobtainable: unobtainable due to mental status [facility] Medical History Medical History Seizures (Acute) Surgical History Surgical History Heart valve replaced (Acute) Social History Social History Substance History: No History of Abuse Second Hand Smoke Exposure: Yes Smoking Status: Light tobacco smoker Tobacco Type: Cigarettes How Often Do You Have a Drink Containing Alcohol: Monthly or less Recent Travel in [facility] within the Last 8 Weeks: No Recent Out of Country Travel within the Last 8 Weeks: No Immunization History Tetanus Immunization: Unsure Medications and Allergies Allergies Allergy/AdvReac Type Severity Reaction Status Date / Time acetaminophen [From Fioricet] Allergy Shortness Verified 11/25/18 18:57 of Breath butalbital [From Fioricet] Allergy Shortness Verified 11/25/18 18:57 of Breath butorphanol Allergy Shortness Verified 11/25/18 18:57 of Breath caffeine [From Fioricet] Allergy Shortness Verified 11/25/18 18:57 of Breath calcium [From DHEA] Allergy Shortness Verified 11/25/18 18:57 of Breath calcium carbonate [From DHEA] Allergy Shortness Verified 11/25/18 18:57 of Breath doxycycline Allergy Shortness Verified 11/25/18 18:57 of Breath droperidol [From Inapsine] Allergy Shortness Verified 11/25/18 18:57 of Breath hydrocodone Allergy Shortness Verified 11/25/18 18:57 [From Lorcet (hydrocodone)] of Breath ketorolac [From Toradol] Allergy Shortness Verified 11/25/18 18:57 of Breath lorazepam [From Ativan] Allergy Shortness Verified 11/25/18 18:57 of Breath metoclopramide [From Reglan] Allergy Shortness Verified 11/25/18 18:57 of Breath nalbuphine [From Nubain] Allergy Shortness Verified 11/25/18 18:57 of Breath oxycodone [From Percocet] Allergy Shortness Verified 11/25/18 18:57 of Breath prasterone (DHEA) [From DHEA] Allergy Shortness Verified 11/25/18 18:57 of Breath prochlorperazine Allergy Shortness Verified 11/25/18 18:57 [From Compazine] of Breath rivaroxaban [From Xarelto] Allergy Shortness Verified 11/25/18 18:57 of Breath sumatriptan [From Imitrex] Allergy Shortness Verified 11/25/18 18:57 of Breath Home Medications Medication Instructions Recorded Confirmed Type alprazolam [Xanax] 1 mg PO BID PRN 11/25/18 11/25/18 History aspirin 81 mg PO DAILY 11/25/18 11/25/18 History cyclobenzaprine 10 mg PO BID PRN 11/25/18 11/25/18 History diltiazem HCl 180 mg PO DAILY 11/25/18 11/25/18 History pantoprazole [Protonix] 40 mg PO DAILY 11/25/18 11/25/18 History Active Medications: Active Medications Alprazolam (Xanax) 1 mg PO BID PRN PRN Reason: Anxiety Aspirin (Aspirin Chew) 81 mg PO DAILY CHANDU Dextrose (D5w Inj) 1,000 mls @ 100 mls/hr IV.CONT .Q10H CHANDU Last Admin: 11/25/18 23:05 Dose: 100 mls/hr Physical Exam Vital signs: Vital Signs 11/25/18 18:29 11/25/18 18:36 11/25/18 19:05 Temperature 99.5 F Pulse Rate 79 104 H Respiratory Rate 16 22 Blood Pressure 120/67 140/60 Pulse Oximetry 99 99 98 11/25/18 21:24 11/25/18 23:00 Temperature Pulse Rate 86 82 Respiratory Rate 20 20 Blood Pressure 164/96 H 126/80 Pulse Oximetry 100 99 Intake & Output 11/25/18 11/25/18 11/26/18 06:59 18:59 06:59 Intake Total 1000 / 1000 Balance 1000 / 1000 Weight 68.039 kg Intake: IV 1000 / 1000 NS Inj 1,000 ML @ 1000 mls/hr 1000 / 1000 IV.SIG BOLUS CHANDU Rx#:[id number] Narrative: PE: GENERAL: Middle-aged white female in no acute distress, lethargic, intermittent moaning. SKIN: Focused skin assessment warm and dry. HEENT: PERRLA, EOMI. No scleral icterus or conjunctival pallor. No lid lag or facial droop. CARDIOVASCULAR: Regular rate and rhythm. No obvious murmurs to auscultation. No chest tenderness to palpation. RESPIRATORY: No obvious rhonchi or wheezing. Clear to auscultation. Breath sounds equal bilaterally. GASTROINTESTINAL: Abdomen soft, non-tender, nondistended. BS normal. MUSCULOSKELETAL: Extremities without clubbing, cyanosis, or edema. No obvious deformities. NEUROLOGICAL: Lethargic, post ictal. No focal neurologic deficits. Moving both upper and lower extremities spontaneously. PSYCHIATRIC: Appropriate mood and affect. Insight and judgment normal. Results Labs CBC & Chem 7: 11/25/18 20:00 11/25/18 20:00 Imaging Impressions Chest X-Ray 11/25/18 19:05 CONCLUSION: No acute cardiopulmonary disease. Head CT 11/25/18 19:05 CONCLUSION: 1. No acute areas of hemorrhage or mass effect. 2. Suspected old lacunar infarcts. . . Caprini VTE Risk Assessment Caprini VTE Risk Assessment: No/Low Risk (score <= 1) Caprini Risk Assessment Model: Point Value = 1 Point Value = 2 Point Value = 3 Point Value = 5 Age 41-60 Minor surgery BMI > 25 kg/m2 Swollen legs Varicose veins or History of unexplained or recurrent spontaneous Oral contraceptives or hormone replacement Sepsis (< 1 month) Serious lung disease, including pneumonia (< 1 month) Abnormal pulmonary function Acute myocardial infarction Congestive heart failure (< 1 month) History of inflammatory bowel disease Medical patient at bed rest Age 61-74 Arthroscopic surgery Major open surgery (> 45 min) Laparoscopic surgery (> 45 min) Malignancy Confined to bed (> 72 hours) Immobilizing plaster cast Central venous access Age >= 75 History of VTE Family history of VTE Factor V Leiden Prothrombin [id number] Lupus anticoagulant Anticardiolipin antibodies Elevated serum homocysteine Heparin-induced thrombocytopenia Other congenital or acquired thrombophilia Stroke (< 1 month) Elective arthroplasty Hip, pelvis, or leg fracture Acute spinal cord injury (< 1 month) Prophylaxis Regimen: Total Risk Factor Score Risk Level Prophylaxis Regimen 0-1 Low Early ambulation 2 Moderate Order ONE of the following: *Sequential Compression Device (SCD) *Heparin 5000 units SQ BID 3-4 Higher Order ONE of the following medications: *Heparin 5000 units SQ TID *Enoxaparin/Lovenox 40 mg SQ daily (WT < 150 kg, CrCl > 30 mL/min) *Enoxaparin/Lovenox 30 mg SQ daily (WT < 150 kg, CrCl > 10-29 mL/min) *Enoxaparin/Lovenox 30 mg SQ BID (WT < 150 kg, CrCl > 30 mL/min) AND/OR *Sequential Compression Device (SCD) 5 or more Highest Order ONE of the following medications: *Heparin 5000 units SQ TID (Preferred with Epidurals) *Enoxaparin/Lovenox 40 mg SQ daily (WT < 150 kg, CrCl > 30 mL/min) *Enoxaparin/Lovenox 30 mg SQ daily (WT < 150 kg, CrCl > 10-29 mL/min) *Enoxaparin/Lovenox 30 mg SQ BID (WT < 150 kg, CrCl > 30 mL/min) AND *Sequential Compression Device (SCD) Assessment and Plan (1) Seizure: Code(s): R56.9 - Unspecified convulsions Status: Acute (2) Hypoglycemia: Code(s): E16.2 - Hypoglycemia, unspecified Status: Acute (3) Chronic pain: Code(s): G89.29 - Other chronic pain Status: Acute (4) Leukocytosis: Code(s): D72.829 - Elevated white blood cell count, unspecified Status: Acute Plan A/P: 1. Seizure: witnessed seizure activity, likely secondary to profound hypoglycemia, no h/o seizure disorder. CT Head w/ old lacunar infarcts. Check EEG, Seizure Precautions, Consult Neurology for further eval, Neuro checks. 2. Hypoglycemia: no h/o DM, BS 40's upon EMS arrival w/ recurrent episodes of hypoglycemia in ER, now on D5 gtt, no evidence of sepsis, check Hgb A1c, monitor BS 3. Chronic Pain: On multiple narcotic medications per home med list, intermittent complaints of pain while in ER. Hold home meds until arousable. 4. Leukocytosis: WBC 12.9, CXR w/ no acute findings, check U/a to eval for UTI , repeat labs in am. 5. DVT Prophylaxis: SCD/Teds 6. Social work for d/c planning as needed. 7. Case discussed w/ ER physician at length, labs/records/imaging reviewed by me
[2018-11-26] MEDS ORDERED: Morphine Sulfate Inj 2 MG/ML Vial IV.PUSH ONE (01:26)
[2018-11-26] MEDS ORDERED: dilTIAZem CD 180 MG Capsule PO SCH (09:00)
[2018-11-26] MEDS ORDERED: Non-Formulary Drug (Diltiazem Hcl [Diltiazem Hcl] 180 MG) PO SCH (09:00)
--- NOTE | 2018-11-26 09:38 | ECG ---
Date Performed: 11/25/2018 Time Performed: 21:22:20 PTAGE: 53 years EKG: Baseline artifact present SINUS TACHYCARDIA NONSPECIFIC ST & T-WAVE ABNORMALITY ABNORMAL RH YT ECG NO PREVIOUS TRACING DOCTOR: Micha Watson Interpretating Date/Time 11/26/2018 09:36:40
--- NOTE | 2018-11-26 10:17 | P.PNIM ---
Subjective Interval history: These are episodes overnight. A similar episode twice before , one was 20 years ago, 1 was a few years ago. Both were because of low blood sugar. Patient denies any history of diabetes mellitus. No complaints right now other than severe right calf pain were intraosseous was done. Pain allegedly now involving the right thigh. Physical Exam Vital signs: Vital Signs 11/25/18 18:29 11/25/18 18:36 11/25/18 19:05 Temperature 99.5 F Pulse Rate 79 104 H Respiratory Rate 16 22 Blood Pressure 120/67 140/60 Pulse Oximetry 99 99 98 11/25/18 21:24 11/25/18 23:00 11/26/18 00:45 Temperature 98.4 F Pulse Rate 86 82 97 H Respiratory Rate 20 20 20 Blood Pressure 164/96 H 126/80 143/82 H Pulse Oximetry 100 99 97 11/26/18 01:55 11/26/18 04:00 Temperature 99.1 F Pulse Rate 90 Respiratory Rate 18 18 Blood Pressure 94/59 L Pulse Oximetry 97 Intake & Output 11/25/18 11/26/18 11/26/18 18:59 06:59 18:59 Intake Total 1000 / 1000 Balance 1000 / 1000 Weight 68.039 kg 67.4 kg Intake: IV 1000 / 1000 NS Inj 1,000 ML @ 1000 mls/hr 1000 / 1000 IV.SIG BOLUS CHANDU Rx#:[id number] Other: Weight On Admission 67.4 kg Narrative: GENERAL: Awake, in distress because of right calf pain. HEENT: PERRLA, EOMI. CARDIOVASCULAR: Regular rate and rhythm. No obvious murmurs to auscultation. RESPIRATORY: No obvious rhonchi or wheezing. Clear to auscultation. Breath sounds equal bilaterally. GASTROINTESTINAL: Abdomen soft, non-tender, nondistended. BS normal. MUSCULOSKELETAL: Extremities without clubbing, cyanosis, or edema. Right calf anteriorly very tender to touch, mildly swollen, no crepitus, distal pulses intact 2+, warm, no erythema. NEUROLOGICAL: Awake alert and oriented to place, person. Moves all extremities. Exam limited because patient is in severe pain . Results Labs CBC & Chem 7: 11/26/18 09:22 11/26/18 09:22 Imaging Imaging: Impressions Chest X-Ray 11/25/18 19:05 CONCLUSION: No acute cardiopulmonary disease. Head CT 11/25/18 19:05 CONCLUSION: 1. No acute areas of hemorrhage or mass effect. 2. Suspected old lacunar infarcts. . . Assessment and Plan (1) Seizure: Code(s): R56.9 - Unspecified convulsions Status: Acute (2) Hypoglycemia: Code(s): E16.2 - Hypoglycemia, unspecified Status: Acute (3) Chronic pain: Code(s): G89.29 - Other chronic pain Status: Acute (4) Leukocytosis: Code(s): D72.829 - Elevated white blood cell count, unspecified Status: Acute Plan This is a 53-year-old female who presented with seizures, blood glucose was found to be in the 40s. Seizure: witnessed seizure activity, likely secondary to profound hypoglycemia , allegedly had 2 episodes of seizures before because of hypoglycemia. CT Head w/ old lacunar infarcts. Check EEG, Seizure Precautions, Consult Neurology for further eval, Neuro checks. Hypoglycemia: no h/o DM, BS 40's upon EMS arrival w/ recurrent episodes of hypoglycemia in ER, now on D5 gtt, no evidence of sepsis, check Hgb A1c, monitor BS Right calf pain from intraosseous access-morphine and Percocet for now as needed. X-ray ordered and done, no fracture on the tibial area, check ultrasound of the right lower extremities. Chronic Pain: On multiple narcotic medications per home med list, intermittent complaints of pain while in ER. May restart home meds now. Hypertension-continue Cardizem Ptosis-resolved, likely reactive. Urinalysis unremarkable DVT: SCDs Progress Note: Quality VTE Deep Vein Thrombosis/Pulmonary Embolism Present on Admission: No
[2018-11-26] MEDS: Morphine Sulfate Inj 2 MG/ML Vial IV.PUSH PRN ×3 (10:45→20:45)
[2018-11-26 11:22] LABS: Baso % (Auto) 0.3 % (0.0-2.0); Eos # (Auto) 0.2 th/mm3 (0.0-0.4); Eos % (Auto) 2.1 % (0.0-4.0); Hematocrit 41.8 % (35.0-46.0); Hemoglobin 14.2 gm/dL (11.6-15.3); Lymph # (Auto) 2.4 th/mm3 (1.0-4.8); Lymph % (Auto) 23.9 % (9.0-44.0); Mean Corpuscular Hemoglobin 29.7 pg (27.0-34.0); Mean Corpuscular Volume 87.4 fL (80.0-100.0); Mean Platelet Volume 7.7 fL (7.0-11.0); Mono # (Auto) 0.5 th/mm3 (0.0-0.9); Mono % (Auto) 5.2 % (0.0-8.0); Neut # (Auto) 6.8 th/mm3 (1.8-7.7); Neut % (Auto) 68.5 % (16.0-70.0); Platelet Count 357 th/mm3 (150-450); Red Blood Count 4.78 mil/mm3 (4.00-5.30); Red Cell Distribution Width 14.4 % (11.6-17.2)
[2018-11-26] MEDS: Senna/Docusate Sodium 8.6/50 MG Tablet PO SCH ×2 (11:23→23:23)
[2018-11-26 11:37] LABS: Alanine Aminotransferase 27 U/L (10-53); Albumin 3.4 g/dL (3.4-5.0); Alkaline Phosphatase 123 U/L (45-117); Anion Gap 8 meq/L (5-15); Aspartate Aminotransferase 21 U/L (15-37); Blood Urea Nitrogen 14 mg/dL (7-18); Calcium 8.7 mg/dL (8.5-10.1); Carbon Dioxide 21.2 meq/L (21.0-32.0); Chloride 108 meq/L (98-107); Glomerular Filtration Rate 59 mL/min (>89); Glucose,Random 114 mg/dL (74-106); Potassium 4.2 meq/L (3.5-5.1); Sodium 137 meq/L (136-145); Total Protein 7.4 g/dL (6.4-8.2)
--- NOTE | 2018-11-26 11:50 | P.CONNEU ---
History of Present Illness Service: Neurology Primary Care Provider: UNKNOWN Chief Complaint: Seizure History of Present Illness: 53-year-old female admitted for possible seizure. Found to have a glucose of 43. States she may have had a similar episode in the past of low blood sugar. No history of any significant head concussion or seizure TIA or stroke. Glucose greater than 100 sodium magnesium in range. CT brain scan demonstrating potential old infarcts. Urine drug screen positive for benzos. Denies any ethanol binge drinking or any illicit drug use. She states she does not work is on disability for chronic pain history of spinal surgery. Review of Systems All other systems reviewed negative except as stated in HPI [facility] - History History Provided By: Patient, Family Member - Medical History Medical History: Medical History (Last Reviewed 11/25/18 @ 22:55 by Royce Butler MD) Seizures - Surgical History Surgical History: Surgical History (Last Reviewed 11/25/18 @ 22:55 by Royce Butler MD) Heart valve replaced - Tobacco History Second Hand Smoke Exposure: Yes Tobacco Use In Past 30 Days: Yes Smoking Status: Light tobacco smoker Tobacco Type: Cigarettes - Alcohol History How Often Do You Have a Drink Containing Alcohol: Monthly or less - Substance Use History Substance History: No History of Abuse - Travel History Recent Travel in the [place] Within the Last 8 Weeks: No Recent Travel Out of the Country Within the Last 8 Weeks: No - Immunization History Tetanus Immunization: Unsure Hx Influenza Vaccine This Season: No Medications and Allergies Active Medications: Active Medications Al Hydroxide/Mg Hydroxide (Milk Of Misti Liq) 30 ml PO Q12H PRN PRN Reason: Mild Constipation Alprazolam (Xanax) 1 mg PO BID PRN PRN Reason: Anxiety Last Admin: 11/26/18 03:32 Dose: 1 mg Aspirin (Aspirin Chew) 81 mg PO DAILY CHANDU Last Admin: 11/26/18 11:23 Dose: 81 mg Bisacodyl (Dulcolax Supp) 10 mg RECTAL DAILY PRN PRN Reason: SEVERE CONSITIPATION Dextrose (D50w Vial) 50 ml IV.PUSH UNSCH PRN PRN Reason: PER HYPOGLYCEMIA PROTOCOL Diltiazem HCl (Cardizem Cd 24hr) 180 mg PO DAILY CHANDU Last Admin: 11/26/18 11:23 Dose: 180 mg Glucagon (Glucagon Inj) 1 mg OTHER PRN PRN PRN Reason: for Hypoglycemia Protocol Dextrose (D5w Inj) 1,000 mls @ 100 mls/hr IV.CONT .Q10H [facility] Last Admin: 11/25/18 23:05 Dose: 100 mls/hr Lactulose (Lactulose Liq) 30 ml PO DAILY PRN PRN Reason: SEVERE CONSITIPATION Morphine Sulfate (Morphine Inj) 2 mg IV.PUSH Q4H PRN PRN Reason: BREAKTHROUGH PAIN Last Admin: 11/26/18 10:45 Dose: 2 mg Ondansetron HCl (Zofran Inj) 4 mg IV.PUSH Q6H PRN PRN Reason: NAUSEA OR VOMITING Pantoprazole Sodium (Protonix) 40 mg PO DAILY [facility] Last Admin: 11/26/18 11:23 Dose: 40 mg Senna/Docusate Sodium (Sheryl-Colace) 1 tab PO BID [facility] Last Admin: 11/26/18 11:23 Dose: 1 tab Sennosides (Senokot) 17.2 mg PO Q12H PRN PRN Reason: Moderate Constipation Sodium Chloride (Ns Flush) 2 ml IV.FLUSH BID [facility] Last Admin: 11/26/18 11:25 Dose: 2 ml Sodium Chloride (Ns Flush) 2 ml IV.FLUSH PRN PRN PRN Reason: FLUSH AFTER USING IV ACCESS Allergies Allergy/AdvReac Type Severity Reaction Status Date / Time acetaminophen [From Fioricet] Allergy Shortness Verified 11/25/18 18:57 of Breath butalbital [From Fioricet] Allergy Shortness Verified 11/25/18 18:57 of Breath butorphanol Allergy Shortness Verified 11/25/18 18:57 of Breath caffeine [From Fioricet] Allergy Shortness Verified 11/25/18 18:57 of Breath calcium [From DHEA] Allergy Shortness Verified 11/25/18 18:57 of Breath calcium carbonate [From DHEA] Allergy Shortness Verified 11/25/18 18:57 of Breath doxycycline Allergy Shortness Verified 11/25/18 18:57 of Breath droperidol [From Inapsine] Allergy Shortness Verified 11/25/18 18:57 of Breath hydrocodone Allergy Shortness Verified 11/25/18 18:57 [From Lorcet (hydrocodone)] of Breath ketorolac [From Toradol] Allergy Shortness Verified 11/25/18 18:57 of Breath lorazepam [From Ativan] Allergy Shortness Verified 11/25/18 18:57 of Breath metoclopramide [From Reglan] Allergy Shortness Verified 11/25/18 18:57 of Breath nalbuphine [From Nubain] Allergy Shortness Verified 11/25/18 18:57 of Breath oxycodone [From Percocet] Allergy Shortness Verified 11/25/18 18:57 of Breath prasterone (DHEA) [From DHEA] Allergy Shortness Verified 11/25/18 18:57 of Breath prochlorperazine Allergy Shortness Verified 11/25/18 18:57 [From Compazine] of Breath rivaroxaban [From Xarelto] Allergy Shortness Verified 11/25/18 18:57 of Breath sumatriptan [From Imitrex] Allergy Shortness Verified 11/25/18 18:57 of Breath Home Medications Medication Instructions Recorded Confirmed Type alprazolam [Xanax] 1 mg PO BID PRN 11/25/18 11/25/18 History aspirin 81 mg PO DAILY 11/25/18 11/25/18 History cyclobenzaprine 10 mg PO BID PRN 11/25/18 11/25/18 History diltiazem HCl 180 mg PO DAILY 11/25/18 11/25/18 History pantoprazole [Protonix] 40 mg PO DAILY 11/25/18 11/25/18 History Exam Vital signs: Vital Signs 11/25/18 18:29 11/25/18 18:36 11/25/18 19:05 Temperature 99.5 F Pulse Rate 79 104 H Respiratory Rate 16 22 Blood Pressure 120/67 140/60 Pulse Oximetry 99 99 98 11/25/18 21:24 11/25/18 23:00 11/26/18 00:45 Temperature 98.4 F Pulse Rate 86 82 97 H Respiratory Rate 20 20 20 Blood Pressure 164/96 H 126/80 143/82 H Pulse Oximetry 100 99 97 11/26/18 01:55 11/26/18 04:00 11/26/18 10:47 Temperature 99.1 F Pulse Rate 90 Respiratory Rate 18 18 20 Blood Pressure 94/59 L Pulse Oximetry 97 Intake & Output 11/25/18 11/26/18 11/26/18 18:59 06:59 18:59 Intake Total 1000 / 1000 Balance 1000 / 1000 Weight 68.039 kg 67.4 kg Intake: IV 1000 / 1000 NS Inj 1,000 ML @ 1000 mls/hr 1000 / 1000 IV.SIG BOLUS CHANDU Rx#:[id number] Other: Weight On Admission 67.4 kg Narrative: GENERAL: in NAD, SKIN: Warm and dry. HEAD: Atraumatic. Normocephalic. EYES: Pupils equal and round. No scleral icterus. ENT: No nasal bleeding or discharge. NECK: Trachea midline. No JVD. CARDIOVASCULAR: Regular rate and rhythm. RESPIRATORY: No accessory muscle use. NEUROLOGICAL: Awake and alert. No aphasia, fluent articulate, No facial asymmetry, OU 3-2mm, eomi, VFF, No drift, right lower extremity discomfort states to having some pain in her knee she had a procedure performed in. Pain in her right foot and can travel to the right thigh. Allodynia, mild hyperpathia to light touch PSYCHIATRIC: Appropriate mood and affect; insight and judgment normal. - Constitutional no acute distress - Routine HEENT Exam Head: Present: normocephalic Eye: Present: EOMI Results - Labs CBC & Chem 7: 11/26/18 09:22 11/26/18 09:22 Labs: Laboratory Results - last 24 hr 11/25/18 11/25/18 11/25/18 19:05 20:00 20:00 WBC 12.9 H RBC 5.49 H Hgb 16.0 H Hct 48.0 H MCV 87.5 MCH 29.2 MCHC 33.4 RDW 14.6 Plt Count 376 MPV 7.9 Prelim Diff (Auto) Slide review pending Neut % (Auto) 73.5 H Lymph % (Auto) 19.8 [place] % (Auto) 4.8 Eos % (Auto) 1.6 Baso % (Auto) 0.3 Neut # (Auto) 9.5 H Lymph # (Auto) 2.6 [place] # (Auto) 0.6 Eos # (Auto) 0.2 Baso # (Auto) 0.0 WBC Differential Manual diff final Seg Neuts % (Manual) 73 H Band Neuts % (Manual) 1 Lymphocytes % (Manual) 16 Monocytes % (Manual) 7 Eosinophils % (Manual) 3 Abs Neuts (Manual) 9.5 H Differential Comment . Platelet Estimate Normal Platelet Morphology Normal Sodium 140 Potassium 3.2 L Chloride 109 H Carbon Dioxide 23.2 Anion Gap 8 BUN 21 H Creatinine 1.07 H Estimated GFR 54 L POC Glucose 209 H Random Glucose 43 L* Lactic Acid Calcium 9.2 Magnesium 2.1 Total Bilirubin 0.2 AST 18 ALT 30 Alkaline Phosphatase 130 H Total Protein 8.6 H Albumin 3.9 Serum Alcohol Less than 3 11/25/18 11/25/18 11/25/18 20:00 21:08 22:48 WBC RBC Hgb Hct MCV MCH MCHC RDW Plt Count MPV Prelim Diff (Auto) Neut % (Auto) Lymph % (Auto) [place] % (Auto) Eos % (Auto) Baso % (Auto) Neut # (Auto) Lymph # (Auto) [place] # (Auto) Eos # (Auto) Baso # (Auto) WBC Differential Seg Neuts % (Manual) Band Neuts % (Manual) Lymphocytes % (Manual) Monocytes % (Manual) Eosinophils % (Manual) Abs Neuts (Manual) Differential Comment Platelet Estimate Platelet Morphology Sodium Potassium Chloride Carbon Dioxide Anion Gap BUN Creatinine Estimated GFR POC Glucose 107 77 Random Glucose Lactic Acid 2.1 H Calcium Magnesium Total Bilirubin AST ALT Alkaline Phosphatase Total Protein Albumin Serum Alcohol 11/25/18 11/26/18 11/26/18 23:57 03:54 08:49 WBC RBC Hgb Hct MCV MCH MCHC RDW Plt Count MPV Prelim Diff (Auto) Neut % (Auto) Lymph % (Auto) [place] % (Auto) Eos % (Auto) Baso % (Auto) Neut # (Auto) Lymph # (Auto) [place] # (Auto) Eos # (Auto) Baso # (Auto) WBC Differential Seg Neuts % (Manual) Band Neuts % (Manual) Lymphocytes % (Manual) Monocytes % (Manual) Eosinophils % (Manual) Abs Neuts (Manual) Differential Comment Platelet Estimate Platelet Morphology Sodium Potassium Chloride Carbon Dioxide Anion Gap BUN Creatinine Estimated GFR POC Glucose 159 H 142 H Random Glucose Lactic Acid 1.5 Calcium Magnesium Total Bilirubin AST ALT Alkaline Phosphatase Total Protein Albumin Serum Alcohol 11/26/18 11/26/18 09:22 09:22 WBC 10.0 RBC 4.78 Hgb 14.2 Hct 41.8 MCV 87.4 MCH 29.7 MCHC 34.0 RDW 14.4 Plt Count 357 MPV 7.7 Prelim Diff (Auto) Neut % (Auto) 68.5 Lymph % (Auto) 23.9 Florence % (Auto) 5.2 Eos % (Auto) 2.1 Baso % (Auto) 0.3 Neut # (Auto) 6.8 Lymph # (Auto) 2.4 [place] # (Auto) 0.5 Eos # (Auto) 0.2 Baso # (Auto) 0.0 WBC Differential . Seg Neuts % (Manual) Band Neuts % (Manual) Lymphocytes % (Manual) Monocytes % (Manual) Eosinophils % (Manual) Abs Neuts (Manual) Differential Comment Auto diff final Platelet Estimate Platelet Morphology Sodium 137 Potassium 4.2 D Chloride 108 H Carbon Dioxide 21.2 Anion Gap 8 BUN 14 Creatinine 0.98 Estimated GFR 59 L POC Glucose Random Glucose 114 H Lactic Acid Calcium 8.7 Magnesium Total Bilirubin 0.7 AST 21 ALT 27 Alkaline Phosphatase 123 H Total Protein 7.4 D Albumin 3.4 Serum Alcohol - Imaging Impressions Chest X-Ray 11/25/18 19:05 CONCLUSION: No acute cardiopulmonary disease. Head CT 11/25/18 19:05 CONCLUSION: 1. No acute areas of hemorrhage or mass effect. 2. Suspected old lacunar infarcts. . . Review/Management - Diagnosis (1) Leukocytosis Code(s): D72.829 - Elevated white blood cell count, unspecified Status: Acute Current Visit: Yes (2) Chronic pain Code(s): G89.29 - Other chronic pain Status: Acute Current Visit: Yes (3) Hypoglycemia Code(s): E16.2 - Hypoglycemia, unspecified Status: Acute Current Visit: Yes (4) Seizure Code(s): R56.9 - Unspecified convulsions Status: Acute Current Visit: Yes - Review/Management Plan: Probable metabolic, nonepileptic seizure. Related to hypoglycemia, question if related to any withdrawal from her narcotic medications States that insurance change and is in the process of getting a new primary care physician Recommendations EEG. If positive will initiate seizure medications Check MRI brain carotid ultrasound with CT findings of lacunar infarct Aspirin Tobacco cessation Evaluation cause for hypoglycemia. She also mentions having an abdominal mass? Will defer to medical Behavioral modification and risk factor reduction. Weight loss, blood pressure control, blood sugar control, lipid control. Exercise No driving, operating any heavy machinery or dangerous machinery, swimming alone for at least 6 months of being seizure, spell free.
--- NOTE | 2018-11-26 11:52 | XR ---
EXAM DATE: 11/26/2018 11:43 AM EST AGE/SEX: 53 years / Female INDICATIONS: Leg pain. CLINICAL DATA: This is the patient's initial encounter. Patient reports that signs and symptoms have been present for 1 day and indicates a pain score of 10/10. MEDICAL/SURGICAL HISTORY: Seizures. Leg pain post intraosseous infusion None. COMPARISON: No prior exams available for comparison. FINDINGS: Bony structures are intact and in normal alignment. Osseous density is normal. Soft tissues are unre markable. No radiopaque foreign bodies seen. CONCLUSION: No acute fracture Electronically signed by: Juan Villalobos MD Board Certified Radiologist 11/26/2018 11:50 AM EST
[2018-11-26 12:39] LABS: Hemoglobin A1c 6.2 % (4.3-6.0)
[2018-11-26 13:00] LABS: Bacteria,Urine Rare /hpf; Bilirubin,Urine Negative (Negative); Clarity,Urine Hazy (Clear); Color,Urine Yellow (Yellw/Straw); Glucose,Urine (UA) 50 mg/dL (Negative); Leukocyte Esterase,Urine Trace (Negative); Mucus,Urine Few /lpf (Occasional); Nitrite,Urine Negative (Negative); Squamous Epithelial Cell,Urine 7 /hpf (0-5)
[2018-11-26 13:06] LABS: Amphetamine Screen,Urine Neg (Neg); Barbiturate Screen,Urine Neg (Neg); Cannabinoid Screen,Urine Neg (Neg); Cocaine Screen,Urine Neg (Neg); Opiate Screen,Urine Neg (Neg)
[2018-11-26] MEDS: Dextrose 5% in Water Inj 1,000 ML IV.CONT SCH ×2 (13:43→23:23)
[2018-11-26 14:51] LABS: Chol/HDL Ratio 5.32 Ratio; HDL Cholesterol 50.5 mg/dL (40.0-60.0)
--- NOTE | 2018-11-26 17:15 | MR ---
EXAM DATE: 11/26/2018 5:08 PM EST AGE/SEX: 53 years / Female INDICATIONS: CVA. CLINICAL DATA: This is the patient's initial encounter. Patient reports that signs and symptoms have been present for 1 day and indicates a pain score of 0/10. MEDICAL/SURGICAL HISTORY: None. Fusion, thoracic. Heart valve replacement. COMPARISON: [facility] [place], CT HEAD W/O CONTRAST, 11/25/2018. . TECHNIQUE: Multiplanar, multisequence examination of the brain was performed without contrast. FINDINGS: Cerebrum: The ventricles are normal for age. Old lacunar infarcts left basal ganglia. Old small righ t parietal infarct. No evidence of midline shift, mass lesion, hemorrhage or acute infarction. No ex traaxial fluid collections are seen. Susceptibility artifacts seen within the parietal lobes possibly from petechial hemorrhage. The pituitary gland and suprasellar cistern are normal in configuration. White Matter: Scattered foci of bright T2 signal abnormalities are seen in the white matter. Posterior Fossa: Brainstem is intact. Old bilateral lacunar infarcts in the cerebellar hemispheres. The 4th ventricle is midline. The cerebellopontine angle is unremarkable. The cerebellar tonsils ar e normal in position. Diffusion Imaging: No focal areas of restricted diffusion are seen. No evidence of acute infarction . Extracranial: The visualized portions of the orbits and paranasal sinuses are unremarkable. CONCLUSION: 1. Old bilateral lacunar infarcts. 2. No acute infarction. 3. A few scattered susceptibility artifact within the parietal lobes could be petechial hemorrhages or hemosiderin deposition from previous lacunar infarcts. Electronically signed by: Juan Villalobos MD Board Certified Radiologist 11/26/2018 5:14 PM EST
--- NOTE | 2018-11-26 22:03 | US ---
EXAM DATE: 11/26/2018 9:56 PM EST AGE/SEX: 53 years / Female INDICATIONS: Right leg pain and swelling. CLINICAL DATA: This is the patient's initial encounter. Patient reports that signs and symptoms have been present for 1 day and indicates a pain score of 7/10. MEDICAL/SURGICAL HISTORY: Seizures. . Heart valve replaced. COMPARISON: No prior exams available for comparison. TECHNIQUE: Venous ultrasound of both lower extremities was performed from the inguinal ligament to t he proximal calf. Real-time, color Doppler and spectral tracing, compression and augmentation techni ques were used. FINDINGS: Normal compression of the deep venous system from the inguinal region to the proximal calf . No echogenic clot is seen. Normal response of the venous system to augmentation and respiration. CONCLUSION: 1. The study is negative for lower extremity deep venous thrombosis. Electronically signed by: Fausto Agudelo MD Board Certified Radiologist 11/26/2018 10:02 PM EST
--- NOTE | 2018-11-26 22:12 | US ---
EXAM DATE: 11/26/2018 9:59 PM EST AGE/SEX: 53 years / Female INDICATIONS: Stroke. CLINICAL DATA: This is the patient's initial encounter. Patient reports that signs and symptoms have been present for 1 day and indicates a pain score of 0/10. MEDICAL/SURGICAL HISTORY: Seizures. . Heart valve replaced. COMPARISON: No prior exams available for comparison. VELOCITY PARAMETERS: ICA/CCA Ratio: Right 1.12 , Left 1.16 ICA: Right 110 cm/sec, Left 123 cm/sec CCA: Right 99 cm/sec, Left 106 cm/sec ECA: Right 88 cm/sec, Left 65 cm/sec Vertebral: Right 64 cm/sec antegrade, Left 57 cm/sec antegrade FINDINGS: Right Carotid: Mild arteriosclerotic plaque is visualized.The waveforms are within normal limits. Left Carotid: Mild arteriosclerotic plaque is visualized. The waveforms are within normal limits. Other: None. CONCLUSION: 1. Right Internal Carotid Artery: Mild plaque without stenosis. 2. Left Internal Carotid Artery: Mild plaque without stenosis. By Electronically signed by: Fausto Agudelo MD Board Certified Radiologist 11/26/2018 10:10 PM EST
[2018-11-27] MEDS: Dextrose 5% in Water Inj 1,000 ML IV.CONT SCH (01:32)
[2018-11-27] MEDS: Morphine Sulfate Inj 2 MG/ML Vial IV.PUSH PRN ×4 (01:34→21:25)
--- NOTE | 2018-11-27 08:58 | P.PNIM ---
Subjective Interval history: Blood pressure on the low side in the 90s-110s overnight. No further seizure episodes, patient recently at [facility], was told that she has a mass. Agreed to stop Flexeril. Pain resolved Physical Exam Vital signs: Vital Signs 11/26/18 10:47 11/26/18 12:00 11/26/18 15:00 Temperature 99.2 F Pulse Rate 98 H Respiratory Rate 20 22 20 Blood Pressure 101/65 Pulse Oximetry 97 11/26/18 16:00 11/26/18 20:00 11/27/18 00:00 Temperature 98.6 F 98.1 F Pulse Rate 83 77 69 Respiratory Rate 18 17 Blood Pressure 105/62 115/58 L Pulse Oximetry 97 95 11/27/18 04:00 11/27/18 06:45 Temperature 98.2 F Pulse Rate 72 Respiratory Rate 18 15 Blood Pressure 93/57 L Pulse Oximetry 94 L Intake & Output 11/26/18 11/27/18 11/27/18 18:59 06:59 18:59 Intake Total 1000 / 1000 1000 / 1000 Output Total 300 / 300 1625 / 1625 Balance 700 / 700 -625 / -625 Weight 67.8 kg Intake: IV 1000 / 1000 1000 / 1000 D5W Inj 1,000 ML @ 75 mls/hr IV 1000 / 1000 1000 / 1000 .CONT .[id number] [facility] Rx#:[id number] Output: Urine 300 / 300 1625 / 1625 Narrative: GENERAL: Awake, not in distress. HEENT: PERRLA, EOMI. CARDIOVASCULAR: Regular rate and rhythm. No obvious murmurs to auscultation. RESPIRATORY: No obvious rhonchi or wheezing. Clear to auscultation. Breath sounds equal bilaterally. GASTROINTESTINAL: Abdomen soft, non-tender, nondistended. BS normal. MUSCULOSKELETAL: Extremities without clubbing, cyanosis, or edema. Right calf pain resolved NEUROLOGICAL: Awake alert and oriented to place, person. Moves all extremities. Exam limited because patient is in severe pain . Results Labs CBC & Chem 7: 11/26/18 09:22 11/26/18 09:22 Labs: Microbiology 11/25/18 20:00 Blood - Peripheral Aerobic Blood Culture - Preliminary No growth in 1 day 11/25/18 20:00 Blood - Peripheral Anaerobic Blood Culture - Preliminary No growth in 1 day 11/25/18 19:45 Blood - Peripheral Aerobic Blood Culture - Preliminary No growth in 1 day 11/25/18 19:45 Blood - Peripheral Anaerobic Blood Culture - Preliminary No growth in 1 day Imaging Imaging: Impressions Head MRI 11/26/18 00:00 CONCLUSION: 1. Old bilateral lacunar infarcts. 2. No acute infarction. 3. A few scattered susceptibility artifact within the parietal lobes could be petechial hemorrhages or hemosiderin deposition from previous lacunar infarcts. Tibia/Fibula X-Ray 11/26/18 00:00 CONCLUSION: No acute fracture Venous Doppler Study 11/26/18 00:00 CONCLUSION: 1. The study is negative for lower extremity deep venous thrombosis. Carotid Doppler Study 11/26/18 13:59 CONCLUSION: 1. Right Internal Carotid Artery: Mild plaque without stenosis. 2. Left Internal Carotid Artery: Mild plaque without stenosis. By Assessment and Plan (1) Leukocytosis: Code(s): D72.829 - Elevated white blood cell count, unspecified Status: Acute (2) Chronic pain: Code(s): G89.29 - Other chronic pain Status: Acute (3) Hypoglycemia: Code(s): E16.2 - Hypoglycemia, unspecified Status: Acute (4) Seizure: Code(s): R56.9 - Unspecified convulsions Status: Acute Plan This is a 53-year-old female who presented with seizures, blood glucose was found to be in the 40s. Seizure: witnessed seizure activity, likely secondary to profound hypoglycemia , allegedly had 2 episodes of seizures before because of hypoglycemia. CT Head w/ old lacunar infarcts. MRI of the head showed bilateral lacunar infarcts that are old. No acute infarction. Possible petechial hemorrhages or hemosiderin deposition versus susceptibility infarct. Carotid arteries negative bilaterally from carotid ultrasound, no stenosis. EEG pending, seizure Precautions, nephrology following, neuro checks. Aspirin per neurology. Stop Flexeril which lowers the seizure threshold. History of abdominal mass-retrieve records from [facility], if colon mass , will need colonoscopy as outpatient. If it is in the stomach or small intestine, may need further workup in-house. Hypoglycemia: no h/o DM, BS 40's upon EMS arrival w/ recurrent episodes of hypoglycemia in ER, blood glucose now in the 90s-130s. No evidence of sepsis, hemoglobin A1c 6.2. Stop D5. Right calf pain from intraosseous access-morphine and Percocet for now as needed. X-ray ordered and done, no fracture on the tibial area, ultrasound of the right lower extremity negative for DVT. Resolved. Chronic Pain: On multiple narcotic medications per home med list, intermittent complaints of pain while in ER. Hypertension-blood pressure soft, will decrease Cardizem long-acting to 120 mg daily. Dyslipidemia-start statins. LFTs within normal limits. Leukocytosis-resolved, likely reactive. Urinalysis unremarkable DVT: SCDs Disposition: Possible discharge if BG's remained stable and EEG negative and cleared by neurology. Progress Note: Quality VTE Deep Vein Thrombosis/Pulmonary Embolism Present on Admission: No _ (1) Chronic pain Qualifiers: Chronic pain type: (2) Leukocytosis Qualifiers: Leukocytosis type:
[2018-11-27] MEDS: dilTIAZem CD 120 MG Capsule PO SCH (09:44)
[2018-11-27] MEDS: Senna/Docusate Sodium 8.6/50 MG Tablet PO SCH ×2 (09:44→21:28)
--- NOTE | 2018-11-27 15:49 | ECHRPT ---
Indication: ATRIAL FIB/FLUTTER CONCLUSIONS Normal left ventricular size. Wall thickness is normal. The left ventricular systolic function is moderately reduced with an estimated ejection fraction in the range of 40-45%. The aortic root and proximal ascending aorta are not well visualized. Normally functioning mitral valve bioprosthesis. No mitral valve regurgitation. The mitral valve area by Pressure Halftime Method is 1.55 cm. Mitral valve mean gradient is 7 mmHg. Aortic valve mean gradient is 4.5 mmHg. Aortic valve area is 1.6 cm. There is trace tricuspid valve regurgitation. BP: / HR: Rhythm: Sinus MEASUREMENTS (Male / Female) Normal Values Technical Quality:Fair 2D ECHO LV Diastolic Diameter PLAX 3.2 cm 4.2 - 5.9 / 3.9 - 5.3 cm LV Systolic Diameter PLAX 2.6 cm IVS Diastolic Thickness 0.7 cm 0.6 - 1.0 / 0.6 - 0.9 cm LVPW Diastolic Thickness 0.8 cm 0.6 - 1.0 / 0.6 - 0.9 cm LV Relative Wall Thickness 0.5 RV Internal Dim ED PLAX 2.3 cm LVOT Diameter 1.6 cm Aortic Root Diameter 2.5 cm LA Systolic Diameter LX 3.1 cm 3.0 - 4.0 / 2.7 - 3.8 cm M-MODE AV Cusp Separation MM 1.6 cm DOPPLER AV Peak Velocity 138.5 cm/s AV Peak Gradient 7.7 mmHg AV Mean Gradient 4.5 mmHg AV Velocity Time Integral 20.6 cm LVOT Peak Velocity 83.7 cm/s LVOT Peak Gradient 2.8 mmHg LVOT Velocity Time Integral 16.6 cm AV Area Cont Eq vti 1.6 cm AV Area Cont Eq pk 1.2 cm MV Peak Velocity 178.7 cm/s MV Peak Gradient 12.8 mmHg MV Mean Velocity 127.7 cm/s MV Mean Gradient 7.0 mmHg MV Area PHT 1.6 cm Mitral E Point Velocity 112.0 cm/s Mitral A Point Velocity 156.0 cm/s Mitral E to A Ratio 0.7 PV Peak Velocity 65.4 cm/s PV Peak Gradient 1.7 mmHg FINDINGS LEFT VENTRICLE Normal left ventricular size. Wall thickness is normal. The left ventricular systolic function is moderately reduced with an estimated ejection fraction in the range of 40-45%. RIGHT VENTRICLE Normal right ventricular size and systolic function. LEFT ATRIUM The left atrial size is normal. RIGHT ATRIUM The right atrial size is normal. ATRIAL SEPTUM The interatrial septum not well visualized. AORTA The aortic root and proximal ascending aorta are not well visualized. MITRAL VALVE Normally functioning mitral valve bioprosthesis. No mitral valve regurgitation. The mitral valve area by Pressure Halftime Method is 1.55 cm. Mitral valve mean gradient is 7 mmHg. AORTIC VALVE Aortic valve mean gradient is 4.5 mmHg. Aortic valve area is 1.6 cm. TRICUSPID VALVE There is trace tricuspid valve regurgitation. PULMONARY VALVE No pulmonary valve regurgitation or stenosis. VESSELS The inferior vena cava was not well visualized. PERICARDIUM No pericardial effusion. Jose D Ibarra MD, FACC, FSCAI (Electronically Signed) Final Date:27 November 2018 15:48
--- NOTE | 2018-11-27 21:09 | MG ---
cc: Thor Joya MD ELECTROENCEPHALOGRAM RECORD NUMBER: [id number] DESCRIPTION: Increased beta frequencies and fast frequencies throughout the recording. Posterior rhythm showing 8-12 Hz activity, 20-50 microvolts. Good EEG variability and reactivity. Good driving with photic stimulation. Single-lead EKG showing sinus rhythm. INTERPRETATION: Normal awake electroencephalogram, but increased beta frequencies. No active seizures. Clinical correlation. MD ONEYDA Ignacio/praneeth , 08:41 PM , 08:46 PM
[2018-11-28] MEDS: Morphine Sulfate Inj 2 MG/ML Vial IV.PUSH PRN ×4 (02:45→20:47)
--- NOTE | 2018-11-28 07:49 | P.PNIM ---
Subjective Interval history: f/u; seizure in no acute distress. no seizures over night. blood sugar trend noted. Physical Exam Vital signs: Vital Signs 11/27/18 08:00 11/27/18 08:25 11/27/18 11:35 Temperature 97.7 F 97.3 F L Pulse Rate 75 71 79 Respiratory Rate 20 20 Blood Pressure 116/56 L 151/66 H Pulse Oximetry 98 11/27/18 12:05 11/27/18 15:25 11/27/18 20:00 Temperature 97.7 F 98.4 F Pulse Rate 91 H 83 Respiratory Rate 19 20 20 Blood Pressure 96/68 L 152/91 H Pulse Oximetry 98 95 11/28/18 00:00 11/28/18 04:00 Temperature 96.7 F L 98.1 F Pulse Rate 96 H 83 Respiratory Rate 20 20 Blood Pressure 125/74 119/64 Pulse Oximetry 97 96 Intake & Output 11/27/18 11/28/18 11/28/18 18:59 06:59 18:59 Intake Total 360 / 360 1140 / 1140 Output Total 350 / 350 Balance 359 / 359 790 / 790 Intake: IV 900 / 900 D5W Inj 1,000 ML @ 75 mls/hr IV 900 / 900 .CONT .[id number] [facility] Rx#:[id number] Oral 360 / 360 240 / 240 Output: Urine 350 / 350 Constitutional no acute distress Routine Respiratory Exam Present CTA bilaterally Routine Cardiovascular Exam Present RRR Routine Abdominal Exam Present soft Routine Extremities Exam Comments: no pedal edema. Routine Neurological Exam Present alert and oriented X3 Results Labs CBC & Chem 7: 11/26/18 09:22 11/26/18 09:22 Labs: Microbiology 11/25/18 20:00 Blood - Peripheral Aerobic Blood Culture - Preliminary No growth in 2 days 11/25/18 20:00 Blood - Peripheral Anaerobic Blood Culture - Preliminary No growth in 2 days 11/25/18 19:45 Blood - Peripheral Aerobic Blood Culture - Preliminary No growth in 2 days 11/25/18 19:45 Blood - Peripheral Anaerobic Blood Culture - Preliminary No growth in 2 days Assessment and Plan (1) Leukocytosis: Code(s): D72.829 - Elevated white blood cell count, unspecified Status: Acute (2) Chronic pain: Code(s): G89.29 - Other chronic pain Status: Acute (3) Hypoglycemia: Code(s): E16.2 - Hypoglycemia, unspecified Status: Acute (4) Seizure: Code(s): R56.9 - Unspecified convulsions Status: Acute Plan This is a 53-year-old female who presented with seizures, blood glucose was found to be in the 40s. Seizure: witnessed seizure activity, likely secondary to profound hypoglycemia , allegedly had 2 episodes of seizures before because of hypoglycemia. CT Head w/ old lacunar infarcts. MRI of the head showed bilateral lacunar infarcts that are old. No acute infarction. Possible petechial hemorrhages or hemosiderin deposition versus susceptibility infarct. Carotid arteries negative bilaterally from carotid ultrasound, no stenosis. EEG with no seizure activity, seizure Precautions, neurology following, neuro checks. Aspirin per neurology. cleared by neurology for discharge ( d/w today). History of abdominal mass-retrieve records from [facility], awaiting the record from [facility]- if colon mass, will need colonoscopy as outpatient. If it is in the stomach or small intestine, may need further workup in-house. Hypoglycemia: no h/o DM, BS 40's upon EMS arrival w/ recurrent episodes of hypoglycemia in ER, blood glucose now stable.. No evidence of sepsis, hemoglobin A1c 6.2. Stopped D5. Right calf pain from intraosseous access-morphine and Percocet for now as needed. X-ray ordered and done, no fracture on the tibial area, ultrasound of the right lower extremity negative for DVT. Resolved. Chronic Pain: On multiple narcotic medications per home med list, intermittent complaints of pain while in ER. Hypertension-blood pressure soft, decreased Cardizem long-acting to 120 mg daily. Dyslipidemia-start statins. LFTs within normal limits. Leukocytosis-resolved, likely reactive. Urinalysis unremarkable DVT: SCDs Discharge Planning: home with [facility] within the next 24 hrs- if remains stable/ pending medical record from [facility]. Progress Note: Quality VTE Deep Vein Thrombosis/Pulmonary Embolism Present on Admission: No _ (1) Chronic pain Qualifiers: Chronic pain type: (2) Leukocytosis Qualifiers: Leukocytosis type:
--- NOTE | 2018-11-28 08:30 | P.DCO ---
Physical Therapy Order: Evaluate and treat Home Health Nursing Order: Medical education, Signs/symptoms of disease process and Nursing assessment with vital signs Case Management Consult Case Management Consult-Home Health: Yes I have seen patient Maria E Kaufman on 11/28/18. My clinical findings support the need for the requested home health care services because: Limited mobility due to disease progression I certify that my clinical findings support that this patient is homebound because: Unsteady gait/balance
[2018-11-28] MEDS: dilTIAZem CD 120 MG Capsule PO SCH (08:32)
[2018-11-28] MEDS: Senna/Docusate Sodium 8.6/50 MG Tablet PO SCH ×2 (08:33→20:47)
[2018-11-29] MEDS: Morphine Sulfate Inj 2 MG/ML Vial IV.PUSH PRN ×2 (01:26→05:58)
[2018-11-29 09:39] VITALS: RESP 18
[2018-11-29] MEDS: Senna/Docusate Sodium 8.6/50 MG Tablet PO SCH (09:49)
[2018-11-29] MEDS: dilTIAZem CD 120 MG Capsule PO SCH (09:49)
--- NOTE | 2018-11-29 11:39 | P.PNIM ---
Subjective Interval history: The patient was complaining of significant pain in her right knee. She also wanted to go home because she was not getting pain medications. She wants a regular diet. She says she has had multiple medical problems over the years and was upset about that. Discussed with nursing. Physical Exam Vital signs: Vital Signs 11/28/18 12:00 11/28/18 16:00 11/28/18 20:00 Temperature 98.6 F 98 F 99.1 F Pulse Rate 75 73 75 Respiratory Rate 16 16 18 Blood Pressure 100/55 L 124/73 113/74 Pulse Oximetry 96 97 96 11/29/18 00:00 11/29/18 04:00 11/29/18 09:38 Temperature 98.8 F 98.1 F 97.1 F L Pulse Rate 68 65 68 Respiratory Rate 16 16 18 Blood Pressure 132/63 105/55 L 118/71 Pulse Oximetry 94 L 93 L 95 Intake & Output 11/28/18 11/29/18 11/29/18 18:59 06:59 18:59 Intake Total 960 / 960 Output Total 600 / 600 Balance 960 / 960 -600 / -600 Weight 69.8 kg Intake: Oral 960 / 960 Output: Urine 600 / 600 Other: # Voids 2 2 # Bowel Movements 0 Narrative: GENERAL: Awake, not in distress. HEENT: PERRLA, EOMI. CARDIOVASCULAR: Regular rate and rhythm. No obvious murmurs to auscultation. RESPIRATORY: No obvious rhonchi or wheezing. Clear to auscultation. Breath sounds equal bilaterally. GASTROINTESTINAL: Abdomen soft, non-tender, nondistended. BS normal. MUSCULOSKELETAL: Extremities without clubbing, cyanosis, or edema. Right knee pain noted. NEUROLOGICAL: Awake alert and oriented to place, person. Moves all extremities. Results Labs CBC & Chem 7: 11/26/18 09:22 11/26/18 09:22 Labs: Microbiology 11/25/18 20:00 Blood - Peripheral Aerobic Blood Culture - Preliminary No growth in 4 days 11/25/18 20:00 Blood - Peripheral Anaerobic Blood Culture - Preliminary No growth in 4 days 11/25/18 19:45 Blood - Peripheral Aerobic Blood Culture - Preliminary No growth in 4 days 11/25/18 19:45 Blood - Peripheral Anaerobic Blood Culture - Preliminary No growth in 4 days Assessment and Plan (1) Leukocytosis: Code(s): D72.829 - Elevated white blood cell count, unspecified Status: Acute (2) Chronic pain: Code(s): G89.29 - Other chronic pain Status: Acute (3) Hypoglycemia: Code(s): E16.2 - Hypoglycemia, unspecified Status: Acute (4) Seizure: Code(s): R56.9 - Unspecified convulsions Status: Acute Plan This is a 53-year-old female who presented with seizures, blood glucose was found to be in the 40s. Seizure: witnessed seizure activity, likely secondary to profound hypoglycemia , allegedly had 2 episodes of seizures before because of hypoglycemia. CT Head w/ old lacunar infarcts. MRI of the head showed bilateral lacunar infarcts that are old. No acute infarction. Possible petechial hemorrhages or hemosiderin deposition versus susceptibility infarct. Carotid arteries negative bilaterally from carotid ultrasound, no stenosis. EEG with no seizure activity, seizure Precautions, neurology following, neuro checks. Aspirin per neurology. -cleared by neurology for discharge. History of abdominal mass-retrieve records from [facility], awaiting the record from [facility]- fatty infiltration of the liver; stable mild prominence of intrahepatic bile duct which is felt to be physiologic; stable right adrenal gland adenoma; persistent thickening of the left colon, possible low-grade colitis; no evidence of obstruction. -outpt GI follow-up. Hypoglycemia: no h/o DM, BS 40's upon EMS arrival w/ recurrent episodes of hypoglycemia in ER, blood glucose now stable. No evidence of sepsis, hemoglobin A1c 6.2. Stopped D5. Right knee pain from intraosseous access-morphine and Percocet for now as needed. X-ray ordered and done, no fracture on the tibial area, ultrasound of the right lower extremity negative for DVT. Chronic Pain: On multiple narcotic medications per home med list, intermittent complaints of pain while in ER. Pain meds in the form of PO Dilaudid and IV morphine as needed. Hypertension-blood pressure soft, decreased Cardizem long-acting to 120 mg daily. Dyslipidemia-start statins. LFTs within normal limits. Leukocytosis-resolved, likely reactive. Urinalysis unremarkable. Resolved. DVT: SCDs Discharge Planning: D/c with [facility] Progress Note: Quality VTE Deep Vein Thrombosis/Pulmonary Embolism Present on Admission: No _ (1) Chronic pain Qualifiers: Chronic pain type: (2) Leukocytosis Qualifiers: Leukocytosis type:
--- NOTE | 2018-11-29 11:54 | P.DS ---
DS: Providers Date of admission: 11/25/18 23:03 Primary care physician: UNKNOWN Consults: 11/25/18 23:04 Consult to Neurology Routine Consulting Provider: Thor Joya Reason for Consultation: Seizure CONSULT FOR AM Notified:: Service Spoke with:: DILIP Date Notified:: 11/25/18 Time Notified:: 23:26 Ordering Provider: MICAELA 11/28/18 15:11 HUB Only Consult Order Routine Consulting Provider: Jimi Krause Anticipated date of discharge: 11/29/18 Brief History from admission: This is a 53-year-old female with a PMH of Chronic Pain who was brought to the ER by EMS after witnessed seizure activity. No h/o seizure per report. Pt unable to provide any history. Per EMS, BS 40' s, no h/o DM, s/p D50 prior to arrival w/ improvement, however has required treatment on several occasions for recurrent hypoglycemia, now on D5 gtt. On arrival, BP 120/67, HR 79, O2 sat 99% on RA, Temp 99.5. CBC 12.9. Hemoglobin 16. Creatinine 1.07. BS 43. Lactic Acid 2.1. Alcohol negative. CXR with no acute findings. CT Head negative for hemorrhage or mass-effect, old lacunar infarcts. DS: Diagnosis Discharge Diagnosis (1) Leukocytosis: Status: Acute (2) Chronic pain: Status: Acute (3) Hypoglycemia: Status: Acute (4) Seizure: Status: Acute DS: Summary This is a 53-year-old female who presented with seizures, blood glucose was found to be in the 40s. Seizure Wwitnessed seizure activity, likely secondary to profound hypoglycemia, allegedly had 2 episodes of seizures before because of hypoglycemia. CT Head w / old lacunar infarcts. MRI of the head showed bilateral lacunar infarcts that are old; No acute infarction; Possible petechial hemorrhages or hemosiderin deposition from previous lacunar infarcts. Carotid artery US with no stenosis. EEG with no seizure activity. Neurology was consulted and cleared the patient for discharge. The pt will continue a baby ASA and will follow up with neurology as an outpt. History of ? abdominal mass The pt reported she was told she had an abdominal mass. Records from [facility]: fatty infiltration of the liver; stable mild prominence of intrahepatic bile duct which is felt to be physiologic; stable right adrenal gland adenoma; persistent thickening of the left colon, possible low-grade colitis; no evidence of obstruction. Outpt GI follow-up is recommended. Hypoglycemia No h/o DM, BS 40's upon EMS arrival w/ recurrent episodes of hypoglycemia in ER , blood glucose now stable s/p D5. Hemoglobin A1c 6.2%. CT from OSH without acute abnormality such as an insulinoma. Outpt follow-up recommended for further imaging and follow up on insulin, proinsulin and c-peptide labs. Right knee pain From intraosseous access. X-ray with no fracture on the tibial area. Ultrasound of the right lower extremity negative for DVT. PT worked with the pt and she will be discharged with [facility]. Chronic pain E-FORCSE was checked prior to prescribing pain meds at discharge. She will follow up with her PCP. Hypertension Blood pressure soft at times so we decreased Cardizem long-acting to 120 mg daily. She will follow up with her PCP. Dyslipidemia We started statin therapy. Leukocytosis UA and CXR negative. Resolved. Time Spent with Patient Total time spent providing and/or coordinating discharge services: Greater than 30 minutes Quality: VTE Deep Vein Thrombosis/Pulmonary Embolism Present on Admission: No Exam Narrative Exam Narrative: GENERAL: Awake, not in distress. HEENT: PERRLA, EOMI. CARDIOVASCULAR: Regular rate and rhythm. No obvious murmurs to auscultation. RESPIRATORY: No obvious rhonchi or wheezing. Clear to auscultation. Breath sounds equal bilaterally. GASTROINTESTINAL: Abdomen soft, non-tender, nondistended. BS normal. MUSCULOSKELETAL: Extremities without clubbing, cyanosis, or edema. Right knee pain noted. NEUROLOGICAL: Awake alert and oriented to place, person. Moves all extremities. Results Labs on day of discharge: Labs from last 24 hours 11/28/18 11/28/18 11/28/18 22:11 17:41 13:48 POC Glucose 178 H 143 H Insulin Level Pending Proinsulin Pending C-Peptide Pending Beta-Hydroxybutyric Acd 11/28/18 11/28/18 13:48 13:27 POC Glucose 107 Insulin Level Proinsulin C-Peptide Beta-Hydroxybutyric Acd 0.25 Preliminary micro results at discharge 11/25/18 20:00 Aerobic Blood Culture - Preliminary Blood - Peripheral No growth in 4 days Anaerobic Blood Culture - Preliminary No growth in 4 days 11/25/18 19:45 Aerobic Blood Culture - Preliminary Blood - Peripheral No growth in 4 days Anaerobic Blood Culture - Preliminary No growth in 4 days Impressions ITS Impressions Chest X-Ray 11/25/18 19:05 CONCLUSION: No acute cardiopulmonary disease. Head CT 11/25/18 19:05 CONCLUSION: 1. No acute areas of hemorrhage or mass effect. 2. Suspected old lacunar infarcts. . . Head MRI 11/26/18 00:00 CONCLUSION: 1. Old bilateral lacunar infarcts. 2. No acute infarction. 3. A few scattered susceptibility artifact within the parietal lobes could be petechial hemorrhages or hemosiderin deposition from previous lacunar infarcts. Tibia/Fibula X-Ray 11/26/18 00:00 CONCLUSION: No acute fracture Venous Doppler Study 11/26/18 00:00 CONCLUSION: 1. The study is negative for lower extremity deep venous thrombosis. Carotid Doppler Study 11/26/18 13:59 CONCLUSION: 1. Right Internal Carotid Artery: Mild plaque without stenosis. 2. Left Internal Carotid Artery: Mild plaque without stenosis. By Discharge Plan Discharge Disposition Patient Disposition: /Home Health Service Discharge Condition Condition: Stable Discharge Order Discharge Orders: Discharge Order (Routine); Ordered 11/29/18 Ordered By: Silvano Yu Discharge Details Anticipated Discharge Date: 11/29/18 Physicians Team ED Provider: Royce Butler Primary Care Provider: UNKNOWN, Attending Provider: Silvano Yu Other Providers: Thor Joya ; [employer] Rxs /Orders / Referrals /Forms Prescriptions: New pravastatin 40 mg Tablet 40 mg PO DAILY 30 Days Qty: 30 RF: 0 hydromorphone 2 mg Tablet 2 mg PO Q4H PRN (Reason: pain 3-10) Qty: 15 RF: 0 diltiazem HCl 120 mg Capsule,Extended Release 24hr 120 mg PO DAILY 30 Days Qty: 30 RF: 0 Continue cyclobenzaprine 10 mg Tablet 10 mg PO BID PRN (Reason: Pain) RF: 0 alprazolam [Xanax] 1 mg Tablet 1 mg PO BID PRN (Reason: Anxiety) RF: 0 pantoprazole [Protonix] 40 mg Tablet,Delayed Release (Dr/Ec) 40 mg PO DAILY RF: 0 aspirin 81 mg Tablet,Chewable 81 mg PO DAILY RF: 0 Discontinued diltiazem HCl 180 mg Capsule,Extended Release 24 Hr 180 mg PO DAILY RF: 0 Referrals: Kay Dixon MD [Physician] - See Instructions (1 week) Thor Joya MD [Physician] - See Instructions (2 weeks) UNKNOWN, [Primary Care Provider] - See Instructions (Follow up with PCP within a week) Status ED Status: Left Department
[2018-11-29] MEDS ORDERED: Morphine Sulfate Inj 2 MG/ML Vial IV.PUSH PRN (12:15)
[2018-11-29 16:33] VITALS: BP 133/84; PULSE 92; TEMP 98.7; O2SAT 95
[2018-12-01 17:51] LABS: C-Peptide 1.96 ng/mL (0.80-3.85)
[2018-12-01 23:52] LABS: Insulin Blood 5.1 uIU/mL (2.0-19.6)
== END 2018-11-29 17:40 | disposition home or self-care (01) | DRG 101 ==
LOC: NEPC 18:18 → NEDA 23:03 → H7ONC 11-26 00:45
PROVIDERS: ADMIT Hospitalist; ATTEND Hospitalist
DX: K76.0 Fatty (change of) liver, not elsewhere classified; F17.210 Nicotine dependence, cigarettes, uncomplicated; D35.01 Benign neoplasm of right adrenal gland; M25.561 Pain in right knee; M79.661 Pain in right lower leg; Z79.82 Long term (current) use of aspirin; E78.5 Hyperlipidemia, unspecified; I10 Essential (primary) hypertension; D72.829 Elevated white blood cell count, unspecified; R56.9 Unspecified convulsions; G89.29 Other chronic pain; E16.2 Hypoglycemia, unspecified; Z86.73 Personal history of transient ischemic attack (TIA), and cerebral infarction without residual deficits
CPT/HCPCS: 70450; 70551; 71010; 71045; 73590; 76937; 80053; 80061; 80307; 81001; 82010; 82607; 82948; 82962; 83036; 83525; 83605; 83735; 84206; 84681; 85025; 87040; 90761; 90774; 90775; 90784; 93306; 93880; 93971; 95819; 96361; 96374; 96375; 97162; 99285; C8952; J2270; J2405; J7030; J7070